=== PATIENT | female | born 1995 | race Caucasian/White ===

== ENCOUNTER 2016-09-06 14:36 | Emergency (ER) | payer SELFPAY ==
[~2016-09-06] VITALS: Ht 170.2 cm; Wt 113.4 kg
[2016-09-06] MEDS ORDERED: IBUP-1780 (14:51)
--- NOTE | 2016-09-06 15:47 | ED General ---
General Chief Complaint: General Problems/Pain Stated Complaint: MIGRAINE SORE THROAT VOMITING EARACHE Nursing Triage Note: States she has had bilateral ear pain for the last 3 days. States today she has been vomiting with no diarrhea, migraine and sore throat. She and her S/O state that they believ they ate something bad yesterday because he has been vomiting as well Nursing Sepsis Screen: No Definite Risk Source of Information: Patient Exam Limitations: No Limitations History of Present Illness Time Seen by Provider: 15:04 Initial Comments This 21-year-old young lady presents to the emergency room with primary complaint of vomiting. She also reports earaches, headache, sore throat, mild cough, and stuffy nose. Symptoms have been present for about 3-4 days. Her significant other reports they were traveling this weekend and ate food at a gas station, and he blames the symptoms on that food. He has also had upset stomach. She denies diarrhea or fever. Allergies and Home Medications Allergies Coded Allergies: No Known Drug Allergies (Unverified , 09/06/16) Home Medications Ibuprofen 800 Mg Tablet, #60 (Reported) Ondansetron 4 Mg Tab.rapdis, 4 MG SL Q4H PRN for NAUSEA/VOMITING-1ST LINE, #10 Prescribed by: NOHELIA PADILLA on 09/06/16 1646 Constitutional: no symptoms reported EENTM: see HPI Respiratory: see HPI Cardiovascular: no symptoms reported Gastrointestinal: see HPI Genitourinary: no symptoms reported : No Musculoskeletal: no symptoms reported Skin: no symptoms reported Psychiatric/Neurological: See HPI Hematologic/Lymphatic: No Symptoms Reported Immunological/Allergic: no symptoms reported Past Zffwlbq-Zsjunk-Ckfiaw Hx Patient Social History Alcohol Use: Rarely Uses Recreational Drug Use: No Smoking Status: Never a Smoker 2nd Hand Smoke Exposure: Yes Recent Foreign Travel: No Contact w/Someone Who Travel: No Recent Infectious Disease Expo: No Recent Hopitalizations: No Immunizations Up To Date Tetanus Booster (TDap): Less than 5yrs Seasonal Allergies Seasonal Allergies: No Surgeries HX Surgeries: No Respiratory Hx Respiratory Disorders: No Cardiovascular Hx Cardiac Disorders: No Neurological Hx Neurological Disorders: Yes Neurological Disorders: Headaches /Migraines Reproductive System : No Genitourinary Hx Genitourinary Disorders: No Gastrointestinal Hx Gastrointestinal Disorders: No Musculoskeletal Hx Musculoskeletal Disorders: No Endocrine Hx Endocrine Disorders: No HEENT HX ENT Disorders: No Cancer Hx Cancer: No Psychosocial Hx Psychiatric Problems: No Integumentary HX Skin/Integumentary Disorder: No Blood Transfusions Hx Blood Disorders: No Physical Exam Vital Signs Vital Sign - Last 12Hours 09/06/16 14:44 Temp 99.3 Pulse 96 Resp 18 B/P (MAP) 130/79 Pulse Ox 96 Capillary Refill : Less Than 3 Seconds General Appearance: No Apparent Distress, WD/WN HEENT: PERRL/EOMI, Normal ENT Inspection, Pharynx Normal Neck: Normal Inspection Respiratory: Lungs Clear, Normal Breath Sounds, No Accessory Muscle Use, No Respiratory Distress Cardiovascular: Regular Rate, Rhythm, No Edema, No Murmur Gastrointestinal: Normal Bowel Sounds, Soft, Tenderness (mild generalized tenderness) Extremity: Normal Inspection, No Pedal Edema Neurologic/Psychiatric: Alert, Oriented x3, No Motor/Sensory Deficits, Normal Mood/Affect, yeast stacker II-XII Norm as Tested Skin: Normal Color, Warm/Dry Progress/Results/Core Measures Results/Orders Lab Results Micro Results My Orders Vital Signs/I&O Blood Pressure Mean: 96 Departure Impression Impression: Primary Impression: Nausea and vomiting Qualified Codes: R11.2 - Nausea with vomiting, unspecified Additional Impression: Flu-like symptoms Disposition: 01 HOME, SELF-CARE Condition: Stable Departure-Patient Inst. Decision time for Depature: 15:20 Referrals: [facility] (PCP/Family) Primary Care Physician Patient Instructions: Nausea and Vomiting, Adult Add. Discharge Instructions: You may use the Zofran (ondansetron) as prescribed for nausea and vomiting. Drink plenty of clear liquids. You may use Tylenol and/or ibuprofen for pain or fever. Follow-up with your primary care provider if not improving. Return to the ER if symptoms worsen. All discharge instructions reviewed with patient and/or family. Voiced understanding. Scripts Ondansetron (Zofran Odt) 4 Mg Tab.rapdis 4 MG SL Q4H Y for NAUSEA/VOMITING-1ST LINE, #10 TAB Prov: NOHELIA PIEDRA MD 09/06/16 NOHELIA PIEDRA MD Sep 06, 2016 15:47
[2016-09-06] MEDS ORDERED: ONDA4TAB8 SL (16:46)
[2016-09-06 16:49] VITALS: BP 130/79
== END 2016-09-06 16:49 | disposition home or self-care (01) ==
LOC: EDUNIT# 14:36 → ER 14:38
DX: J10.2 Influenza due to other identified influenza virus with gastrointestinal manifestations (principal); H92.03 Otalgia, bilateral
CPT/HCPCS: 87430; 87804; 99281

== ENCOUNTER 2016-12-20 08:59 | Emergency (ER) | payer SELFPAY ==
[~2016-12-20] VITALS: Ht 172.7 cm; Wt 117.9 kg
[~2016-12-20 08:59] MED LIST: IBUP-1780; ONDA4TAB8 SL
[2016-12-20] MEDS ORDERED: IBUPROFEN 800 MG (MOTRIN) TAB PO STA (10:06)
[2016-12-20 10:21] LABS: BILIRUBIN,URINE NEGATIVE (NEGATIVE); KETONES,URINE NEGATIVE (NEGATIVE); LEUKOCYTE ESTERASE ,URINE 1+ (NEGATIVE); NITRITE,URINE NEGATIVE (NEGATIVE); PH,URINE 8 (5-9); PROTEIN,URINE NEGATIVE (NEGATIVE); UROBILINOGEN,URINE NORMAL (NORMAL)
[2016-12-20 10:25] LABS: WBC,URINE 0-2 /HPF
--- NOTE | 2016-12-20 11:25 | ED Headache ---
General Chief Complaint: Head/Cervical Problems Stated Complaint: HEADACHE/ABD PAIN/NAUSEA Nursing Triage Note: PT REPORTS SHE WOKE UP WITH A MEJIA AND NAUSEA. PT ALSO REPORTS BREAST TENDERNESS. Nursing Sepsis Screen: No Definite Risk Source: patient Exam Limitations: no limitations History of Present Illness Time seen by provider: 11:24 Initial Comments To ER with reports of a mild headache that started this morning upon awakening. She has associated photophobia and nausea and she does report a history of headaches and this is similar. She also reports breast tenderness and suprapubic discomfort. Last menstrual period was 31 days ago. She states that she is usually irregular. No dysuria. No vaginal discharge. No constipation or diarrhea. No fevers or chills. Timing/Duration: 4-6 hours Severity/Quality: moderate Location: global Prior Headaches/Recent Trauma: occasional headaches Associated Symptoms: No confusion, No fatigue, No facial pain, No fever/chills , No flushing, No loss of consciousness, nausea/vomiting, No nasal congestion, No nasal drainage Allergies and Home Medications Allergies Coded Allergies: No Known Drug Allergies (Unverified , 09/06/16) Home Medications Unable to Obtain Active Prescriptions or Reported Meds Constitutional: see HPI Eyes: No Symptoms Reported Ears, Nose, Mouth, Throat: no symptoms reported Respiratory: no symptoms reported Cardiovascular: no symptoms reported Gastrointestinal: nausea, No vomiting Genitourinary: no symptoms reported Musculoskeletal: no symptoms reported Skin: no symptoms reported Psychiatric/Neurological: No Symptoms Reported Past Tszgfir-Krjzgw-Fnfvoo Hx Patient Social History Alcohol Use: Rarely Uses Recreational Drug Use: No Smoking Status: Never a Smoker 2nd Hand Smoke Exposure: Yes Recent Foreign Travel: No Contact w/Someone Who Travel: No Recent Infectious Disease Expo: No Recent Hopitalizations: No Immunizations Up To Date Tetanus Booster (TDap): Less than 5yrs Seasonal Allergies Seasonal Allergies: No Surgeries HX Surgeries: No Respiratory Hx Respiratory Disorders: No Cardiovascular Hx Cardiac Disorders: No Neurological Hx Neurological Disorders: Yes Neurological Disorders: Headaches /Migraines Genitourinary Hx Genitourinary Disorders: No Gastrointestinal Hx Gastrointestinal Disorders: No Musculoskeletal Hx Musculoskeletal Disorders: No Endocrine Hx Endocrine Disorders: No HEENT HX ENT Disorders: No Cancer Hx Cancer: No Psychosocial Hx Psychiatric Problems: No Integumentary HX Skin/Integumentary Disorder: No Blood Transfusions Hx Blood Disorders: No Physical Exam Vital Signs Vital Sign - Last 12Hours 12/20/16 09:25 Temp 98.1 Pulse 95 Resp 18 B/P (MAP) 125/71 Pulse Ox 97 Capillary Refill : Less Than 3 Seconds General Appearance: WD/WN, no apparent distress HEENT: PERRL/EOMI, normal ENT inspection Neck: non-tender, full range of motion Cardiovascular: regular rate, rhythm, no edema Respiratory: no respiratory distress, no accessory muscle use Gastrointestinal: non tender, soft Extremities: normal range of motion, non-tender Psychiatric: alert, oriented x 3 Crainal Nerves: normal hearing, normal speech, PERRL Skin: normal color, warm/dry Progress/Results/Core Measures Results/Orders Lab Results Laboratory Tests Test 12/20/16 09:20 Range/Units Urine Color YELLOW Urine Clarity SLIGHTLY CLOUDY Urine pH 8 5-9 Urine Specific [place] 1.010 L 1.016-1.022 Urine Protein NEGATIVE NEGATIVE Urine Glucose (UA) NEGATIVE NEGATIVE Urine Ketones NEGATIVE NEGATIVE Urine Nitrite NEGATIVE NEGATIVE Urine Bilirubin NEGATIVE NEGATIVE Urine Urobilinogen NORMAL NORMAL MG/DL Urine Leukocyte Esterase 1+ H NEGATIVE Urine RBC (Auto) NEGATIVE NEGATIVE Urine RBC NONE /HPF Urine WBC 0-2 /HPF Urine Squamous Epithelial Cells 10-25 H /HPF Urine Crystals NONE /LPF Urine Bacteria TRACE /HPF Urine Casts NONE /LPF Urine Mucus NEGATIVE /LPF Urine Culture Indicated NO My Orders Orders - ALEX MOCTEZUMA APRN Prochlorperazine Injection (Compazine In (12/20/16 11:30) Vital Signs/I&O Vital Sign - Last 12Hours 12/20/16 09:25 Temp 98.1 Pulse 95 Resp 18 B/P (MAP) 125/71 Pulse Ox 97 Blood Pressure Mean: 89 Point of Care Testing Urine -Bedside: Negative Departure Impression Impression: Primary Impression: Headache Disposition: 01 HOME, SELF-CARE Condition: Stable Departure-Patient Inst. Decision time for Depature: 11:40 Referrals: NASIR GARCIA DO (PCP) Primary Care Physician MARGARET BALLARD APRN (Family) Primary Care Physician Patient Instructions: Headache, Adult (DC) Add. Discharge Instructions: 1. Return to ER for any concerns 2. See your doctor next week 3. All discharge instructions reviewed with patient and/or family. Voiced understanding. Scripts Unable to Obtain Active Prescriptions or Reported Meds ALEX MOCTEZUMA APRN Dec 20, 2016 11:25
[2016-12-20] MEDS ORDERED: PROCHLORPERAZINE 10 MG/2ML INJ (COMPAZINE) IM ONE (11:30)
[2016-12-20 12:19] VITALS: BP 99/46
== END 2016-12-20 12:19 | disposition home or self-care (01) ==
LOC: EDUNIT# 08:59 → ER 09:02
DX: R51 Headache (principal)
CPT/HCPCS: 81000; 84703; 96372; 99284

== ENCOUNTER 2017-04-11 07:23 | Emergency (ER) | payer SELFPAY ==
[~2017-04-11] VITALS: Ht 172.7 cm; Wt 117.9 kg
--- OUTSIDE RECORDS SUMMARY | 2017-04-11 07:29 | XMS REPORT ---
Author Author MARGARET BALLARD Organization [facility] Address [address] [place] [address] Care Team Providers Care Senior Materials Scientist Name Role Phone BALLARDMARGARET Coley Unavailable PROBLEMS Type Condition ICD9-CM Code [id number] Code Onset Dates Condition Status SNOMED Code Problem History of drug use F19.21 Active 180543600 Problem Obesity (BMI 30-39.9) E66.9 Active 984069161 Problem Marijuana abuse F12.10 Active 54906200 Problem Low back pain M54.5 Active 652283529977 Problem Hyperinsulinemia E16.1 Active 74957885 Problem Low HDL (under 40) E78.6 Active 841034203 Problem HSV-2 (herpes simplex virus 2) infection B00.9 Active 048725304 Problem Family history of diabetes mellitus Z83.3 Active 343406482 Problem Irregular bleeding N92.6 Active 72538478 Problem Routine health maintenance Z00.00 Active 856873512 ALLERGIES Substance Reaction Event Type Date Status N.K.D.A. Unknown Non Drug Allergy Jun, Unknown SOCIAL HISTORY No smoking Hx information available PLAN OF CARE Activity Details Follow Up prn Reason: VITAL SIGNS Height 5'8" in 2016-06-17 Weight 254.6 lbs 2016-06-17 Temperature 97.7 degrees Fahrenheit 2016-06-17 Heart Rate 86 bpm 2016-06-17 Respiratory Rate 18 2016-06-17 BMI 38.71 kg/m2 2016-06-17 Blood pressure systolic 126 mmHg 2016-06-17 Blood pressure diastolic 76 mmHg 2016-06-17 MEDICATIONS Medication Instructions Dosage Frequency Start Date End Date Duration Status Ibuprofen 800 MG Orally 2 times a day 1 tablet 12h Jan, 90 days Active Metronidazole 500 MG Orally Twice a day 1 tablet 12h Jun, Jun, 10 day(s) Active Bactrim DS 800-160 MG Orally Twice a day 1 tablet 12h Jun,Jun 10 day(s) Active Acyclovir 400 MG Orally 3 times a day 1 tablet 8h Dec, 10 day(s ) Active Diflucan 150 MG Orally Once a day 1 tablet today and repeat in 7 days 24h Jun, Jun, 2 days Active RESULTS Name Result Date Reference Range TRICHOMONAS (IN HOUSE) 2016-06-17 TRICHOMONAS Negative Control + Lot # [id number] Exp date 2016-11 UA LONG DIP (IN HOUSE) 2016-06-17 Lot # [id number] Exp date 2017-06-15 Clarity clear Color yellow Odor none GLU negative APRIL negative KET negative SG >=1.030 BLO trace-intact pH 6.0 Protein negative URO 0.2 NIT negative MINI negative Lot # [id number] Exp date 2017-06 BACTERIAL VAGINOSIS (IN HOUSE) RESULTS pOSITIVE Control + Lot # [id number] Exp date 2017-01 CULTURE, VIRAL (HSV W/ TYPING) 2016-06-17 HSV Culture/Type CULTURE, GENITAL 2016-06-17 Genital Culture, Routine Final report Result 1 GC/CHLAM PROBE (STATE) 2016-06-17 CHLAMYDIA negative GC negative PROCEDURES Procedure Date Ordered Related Diagnosis Body Site PELVIC EXAMINATION 2016-06-17 N/A URINALYSIS, AUTO, W/O SCOPE Jun 17, 2016 Office Visit, Est Pt., Level 3 Jun 17, 2016 ERVIN VIRUS ISOLATE, HSV Jun 17, 2016 PELVIC EXAMINATION Jun 17, 2016 AKINS VAG, DNA, DIR PROBE Jun 17, 2016 TRICHOMONAS ASSAY W/OPTIC Jun 17, 2016 CULTURE, BACTERIA, OTHER Jun 17, 2016 No Charge Jun 17, 2016 IMMUNIZATIONS No Known Immunizations
--- OUTSIDE RECORDS SUMMARY | 2017-04-11 07:29 | XMS REPORT ---
Author Author MARGARET BALLARD Organization [facility] Address [address] [place] [address] Care Team Providers Care Autism Motor Specialist Name Role Phone NELLIE MARGARET Unavailable PROBLEMS Type Condition ICD9-CM Code BIC19-ZP Code Onset Dates Condition Status SNOMED Code Problem History of drug use F19.21 Active 004931149 Problem Obesity (BMI 30-39.9) E66.9 Active 176858646 Problem Marijuana abuse F12.10 Active 95450637 Problem Low back pain M54.5 Active 537138376278 Problem Hyperinsulinemia E16.1 Active 38202780 Problem Low HDL (under 40) E78.6 Active 617022576 Problem HSV-2 (herpes simplex virus 2) infection B00.9 Active 600473266 Problem Family history of diabetes mellitus Z83.3 Active 213618458 Problem Irregular bleeding N92.6 Active 57205136 Problem Routine health maintenance Z00.00 Active 503041050 ALLERGIES Unknown Allergies SOCIAL HISTORY No smoking Hx information available PLAN OF CARE VITAL SIGNS MEDICATIONS Medication Instructions Dosage Frequency Start Date End Date Duration Status Microgestin 1.530 1.5-30 MG-MCG Orally Once a day 1 tablet 24h May, 28 days Active RESULTS No Results PROCEDURES No Known procedures IMMUNIZATIONS No Known Immunizations
--- OUTSIDE RECORDS SUMMARY | 2017-04-11 07:29 | XMS REPORT ---
Author Author MARGARET BALLARD Organization [facility] Address [address] [place] [address] Care Team Providers Care Cutter Hand Name Role Phone MARGARET BALLARD Unavailable PROBLEMS Type Condition ICD9-CM Code [id number] Code Onset Dates Condition Status SNOMED Code Problem History of drug use F19.21 Active 762837585 Problem Obesity (BMI 30-39.9) E66.9 Active 586547286 Problem Marijuana abuse F12.10 Active 48150696 Problem Low back pain M54.5 Active 404906276166 Problem Hyperinsulinemia E16.1 Active 18909069 Problem Low HDL (under 40) E78.6 Active 590956407 Problem HSV-2 (herpes simplex virus 2) infection B00.9 Active 771375707 Problem Family history of diabetes mellitus Z83.3 Active 367857686 Problem Irregular bleeding N92.6 Active 26416338 Problem Routine health maintenance Z00.00 Active 476046724 ALLERGIES Unknown Allergies SOCIAL HISTORY No smoking Hx information available PLAN OF CARE VITAL SIGNS MEDICATIONS Unknown Medications RESULTS No Results PROCEDURES No Known procedures IMMUNIZATIONS No Known Immunizations
--- OUTSIDE RECORDS SUMMARY | 2017-04-11 07:29 | XMS REPORT ---
Author Author MARGARET BALLARD Organization [facility] Address [address] [place] [address] Care Team Providers Care Bellows Assembler Name Role Phone BALLARDMARGARET Coley Unavailable PROBLEMS Type Condition ICD9-CM Code [id number] Code Onset Dates Condition Status SNOMED Code Problem History of drug use F19.21 Active 688834715 Problem Obesity (BMI 30-39.9) E66.9 Active 696082581 Problem Marijuana abuse F12.10 Active 20471239 Problem Low back pain M54.5 Active 482039033068 Problem Hyperinsulinemia E16.1 Active 33489339 Problem Low HDL (under 40) E78.6 Active 816639311 Problem HSV-2 (herpes simplex virus 2) infection B00.9 Active 231690076 Problem Family history of diabetes mellitus Z83.3 Active 120133098 Problem Irregular bleeding N92.6 Active 10769893 Problem Routine health maintenance Z00.00 Active 920135128 ALLERGIES No Known Allergies SOCIAL HISTORY Never Assessed PLAN OF CARE Activity Details Follow Up 4 Weeks Reason:Weight management VITAL SIGNS Height 5'8" in 2016-07-29 Weight 253.4 lbs 2016-07-29 Temperature 97.8 degrees Fahrenheit 2016-07-29 Heart Rate 84 bpm 2016-07-29 Respiratory Rate 18 2016-07-29 BMI 38.53 kg/m2 2016-07-29 Blood pressure systolic 118 mmHg 2016-07-29 Blood pressure diastolic 79 mmHg 2016-07-29 MEDICATIONS Medication Instructions Dosage Frequency Start Date End Date Duration Status Metformin HCl 500 MG Orally Twice a day 1 tablet with evening meal x 1 week then one tablet twice a day with meals 12h 06 Apr, 2016 90 days Active Ibuprofen 800 MG Orally 2 times a day 1 tablet 12h 30 Jan, 2017 90 days Active RESULTS No Results PROCEDURES No Known procedures IMMUNIZATIONS No Known Immunizations MEDICAL (GENERAL) HISTORY Type Description Date Medical History HSV 2 Hospitalization History Mental Observation
--- OUTSIDE RECORDS SUMMARY | 2017-04-11 07:30 | XMS REPORT ---
Author Author MARGARET BALLARD Organization [facility] Address [address] [place] [address] Care Team Providers Care Acquisition Manager Name Role Phone BALLARDMARGARET Coley Unavailable PROBLEMS Type Condition ICD9-CM Code SAE19-NB Code Onset Dates Condition Status SNOMED Code Problem History of drug use F19.21 Active 478047820 Problem Obesity (BMI 30-39.9) E66.9 Active 038757348 Problem Marijuana abuse F12.10 Active 83916988 Problem Low back pain M54.5 Active 012672621680 Problem Hyperinsulinemia E16.1 Active 96084103 Problem Low HDL (under 40) E78.6 Active 429937094 Problem HSV-2 (herpes simplex virus 2) infection B00.9 Active 870793949 Problem Family history of diabetes mellitus Z83.3 Active 483530626 Problem Irregular bleeding N92.6 Active 14384882 Problem Routine health maintenance Z00.00 Active 289529049 ALLERGIES Substance Reaction Event Type Date Status N.K.D.A. Unknown Non Drug Allergy May, Unknown SOCIAL HISTORY No smoking Hx information available PLAN OF CARE Activity Details Follow Up 3 Months Reason:[facility] VITAL SIGNS Height 5'8" in 2016-05-18 Weight 255.6 lbs 2016-05-18 Temperature 97.6 degrees Fahrenheit 2016-05-18 Heart Rate 80 bpm 2016-05-18 Respiratory Rate 18 2016-05-18 BMI 38.86 kg/m2 2016-05-18 Blood pressure systolic 120 mmHg 2016-05-18 Blood pressure diastolic 78 mmHg 2016-05-18 MEDICATIONS Medication Instructions Dosage Frequency Start Date End Date Duration Status Metformin HCl 500 MG Orally Twice a day 1 tablet with evening meal x 1 week then one tablet twice a day with meals 12h 06 Apr, 2016 30 day(s) Active Ibuprofen 800 MG Orally 2 times a day 1 tablet 12h 30 Jan, 2017 90 days Active RESULTS No Results PROCEDURES Procedure Date Ordered Related Diagnosis Body Site Office Visit, Est Pt., Level 3 May 18, 2016 IMMUNIZATIONS No Known Immunizations
[2017-04-11 07:49] LABS: BILIRUBIN,URINE NEGATIVE (NEGATIVE); KETONES,URINE NEGATIVE (NEGATIVE); LEUKOCYTE ESTERASE ,URINE 1+ (NEGATIVE); NITRITE,URINE NEGATIVE (NEGATIVE); PH,URINE 5 (5-9); PROTEIN,URINE NEGATIVE (NEGATIVE); UROBILINOGEN,URINE NORMAL (NORMAL)
[2017-04-11 08:00] LABS: SQUAMOUS EPITHELIAL CELL,UR 25-50 /HPF; WBC,URINE RARE /HPF
[2017-04-11] MEDS ORDERED: LIDOCAINE 2% VISCOUS 15 ML UDC PO ONE (08:00)
[2017-04-11] MEDS ORDERED: ONDANSETRON 4 MG (ZOFRAN) ORAL DISSOLVE TAB SL ONE (08:00)
[2017-04-11] MEDS ORDERED: ANTACID SUSP 30 ML UDC (MYLANTA) PO ONE (08:00)
--- NOTE | 2017-04-11 08:27 | ED Abdominal Pain ---
General Chief Complaint: Abdominal/GI Problems Stated Complaint: LEFT ABD PAIN Nursing Triage Note: AMB TO ROOM C/O L LOWER ABD CRAMPING. 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 Pain radiates around to the left flank and back. She has associated nausea without vomiting. She denies constipation or diarrhea. Last bowel movement was yesterday and was normal. She denies any urinary changes for vaginal symptoms. Movement exacerbates her pain. Her last oral intake of food or fluid was at 23:30. She has not taken any medications for this pain. Last menstrual period was 2 weeks ago. She is sexually active. Allergies and Home Medications Allergies Coded Allergies: No Known Drug Allergies (Unverified , 09/06/16) Home Medications Unable to Obtain Active Prescriptions or Reported Meds Review of Systems Constitutional: no symptoms reported EENTM: No Symptoms Reported Respiratory: No Symptoms Reported Cardiovascular: No Symptoms Reported Gastrointestinal: See HPI Genitourinary: No Symptoms Reported Musculoskeletal: no symptoms reported Skin: no symptoms reported Psychiatric/Neurological: No Symptoms Reported Endocrine: No Symptoms Reported Past Qpdczyx-Dkgsdi-Umcdiy Hx Patient Social History Alcohol Use: Occasionally Uses Recreational Drug Use: No Smoking Status: Never a Smoker 2nd Hand Smoke Exposure: Yes Recent Foreign Travel: No Contact w/Someone Who Travel: No Recent Infectious Disease Expo: No Recent Hopitalizations: No Immunizations Up To Date Tetanus Booster (TDap): Less than 5yrs Seasonal Allergies Seasonal Allergies: No Surgeries History of Surgeries: No Respiratory History of Respiratory Disorde: No Cardiovascular History of Cardiac Disorders: No Neurological History of Neurological Disord: Yes Neurological Disorders: Headaches /Migraines Reproductive System : No Last Menstrual Period: Mar 28, 2017 Genitourinary History of Genitourinary Disor: No Gastrointestinal History of Gastrointestinal Di: No Musculoskeletal History of Musculoskeletal Dis: No Endocrine History of Endocrine Disorders: No HEENT History of HEENT Disorders: No Cancer History of Cancer: No Psychosocial History of Psychiatric Problem: No Integumentary History of Skin or Integumenta: No Blood Transfusions History of Blood Disorders: No Physical Exam Vital Signs VS - Last 72 Hours, by Label 04/11/17 07:28 Temp 97.6 Pulse 78 Resp 18 B/P (MAP) 129/72 Pulse Ox 98 O2 Delivery Room Air Capillary Refill : Less Than 3 Seconds General Appearance: WD/WN, no apparent distress HEENT: PERRL/EOMI, normal ENT inspection, pharynx normal Neck: normal inspection Respiratory: lungs clear, normal breath sounds, no respiratory distress, no accessory muscle use Cardiovascular: regular rate, rhythm, no edema, no murmur Gastrointestinal: normal bowel sounds, soft, No distended, No guarding, No rebound, tenderness (left upper quadrant and epigastrium) Extremities: normal inspection, no pedal edema 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, no motor/sensory deficits, alert, normal mood/affect, oriented x 3 Skin: normal color, warm/dry Progress/Results/Core Measures Results/Orders Lab Results Laboratory Tests Test 04/11/17 07:41 Range/Units Urine Color YELLOW Urine Clarity CLEAR Urine pH 5 5-9 Urine Specific [place] 1.020 1.016-1.022 Urine Protein NEGATIVE NEGATIVE Urine Glucose (UA) NEGATIVE NEGATIVE Urine Ketones NEGATIVE NEGATIVE Urine Nitrite NEGATIVE NEGATIVE Urine Bilirubin NEGATIVE NEGATIVE Urine Urobilinogen NORMAL NORMAL MG/DL Urine Leukocyte Esterase 1+ H NEGATIVE Urine RBC (Auto) 4+ H NEGATIVE Urine RBC 10-25 H /HPF Urine WBC RARE /HPF Urine Squamous Epithelial Cells 25-50 H /HPF Urine Crystals NONE /LPF Urine Bacteria NEGATIVE /HPF Urine Casts NONE /LPF Urine Mucus SMALL H /LPF Urine Culture Indicated NO My Orders Orders - NOHELIA PIEDRA MD Ua Culture If Indicated (04/11/17 07:31) Urine Bedside (04/11/17 07:31) Ondansetron Oral Dissolve Tab (Zofran (04/11/17 08:00) Lidocaine 2% Viscous 15 Ml (Xylocaine Vi (04/11/17 08:00) Antacid Suspension (Mylanta Suspension (04/11/17 08:00) Medications Given in ED Current Medications Medications Dose Ordered Sig/Momo Route Start Time Stop Time Status Last Admin Dose Admin Al Hydrox/Mg Hydrox/Simethicone 30 ml ONCE ONCE PO 04/11/17 08:00 04/11/17 08:01 DC 04/11/17 08:15 30 ML Lidocaine HCl 15 ml ONCE ONCE PO 04/11/17 08:00 04/11/17 08:01 DC 04/11/17 08:14 15 ML Ondansetron HCl 8 mg ONCE ONCE SL 04/11/17 08:00 04/11/17 08:01 DC 04/11/17 07:58 8 MG Vital Signs/I&O Vital Sign - Last 12Hours 04/11/17 07:28 Temp 97.6 Pulse 78 Resp 18 B/P (MAP) 129/72 Pulse Ox 98 O2 Delivery Room Air Blood Pressure Mean: 91 Point of Care Testing Urine -Bedside: Negative Progress Note : Time: 08:31 Progress Note Patient was given Zofran sublingually followed by a GI cocktail. Nausea resolved and pain improved moderately both subjectively and on examination. We will try to manage her symptoms with oral medications. She was advised to return if symptoms worsen. Departure Impression Impression: Primary Impression: Epigastric pain Additional Impression: Nausea Disposition: 01 HOME, SELF-CARE Condition: Improved Departure-Patient Inst. Decision time for Depature: 08:32 Referrals: NASIR GARCIA DO (PCP) Primary Care Physician MARGARET BALLARD APRN (Family) Primary Care Physician Patient Instructions: Acute Abdomen (Belly Pain), Adult (DC), Gastritis (DC) Add. Discharge Instructions: Drink plenty of clear liquids. Sip on clear liquids such as water, Gatorade, etc. frequently throughout the day. Use the nausea medication as prescribed. Use an antacid such as Pepcid (famotidine) 20 mg twice daily and/or Prilosec ( omeprazole) 20 mg twice daily as long as pain persists. The generic forms of these medications should work just as well as brand name. You may additionally use Tums for more immediate relief of pain. Avoid the following: Eating large meals, eating close to bedtime, citrus fruits and juices, tomato products, chocolate, carbonation, caffeine, tobacco products, alcohol, NSAID medications such as ibuprofen or naproxen, spicy foods, fatty or greasy foods, or anything else you know irritate your stomach. Gradually advance your diet with small quantities of bland food as tolerated. Return to the ER if symptoms worsen. All discharge instructions reviewed with patient and/or family. Voiced understanding. Scripts Ondansetron (Zofran Odt) 4 Mg Tab.rapdis 4 MG SL Q4H Y for NAUSEA/VOMITING-1ST LINE, #10 TAB Substitute regular tabs if sublingual is cost prohibitive Prov: NOHELIA PIEDRA MD 04/11/17 NOHELIA PIEDRA MD Apr 11, 2017 08:27
[2017-04-11] MEDS ORDERED: ONDA4TAB8 SL (08:36)
[2017-04-11 08:45] VITALS: BP 129/72
== END 2017-04-11 08:45 | disposition home or self-care (01) ==
LOC: EDUNIT# 07:23 → ER 07:25
DX: R10.13 Epigastric pain (principal); R11.0 Nausea; G43.909 Migraine, unspecified, not intractable, without status migrainosus; Z77.22 Contact with and (suspected) exposure to environmental tobacco smoke (acute) (chronic)
CPT/HCPCS: 81000; 84703; 99283

== ENCOUNTER 2017-12-05 08:21 | Emergency (ER) | payer SELFPAY ==
[~2017-12-05] VITALS: Ht 172.7 cm; Wt 121.6 kg
--- OUTSIDE RECORDS SUMMARY | 2017-12-05 08:27 | XMS REPORT ---
Author Author MARGARET BALLARD [facility] Address [address] [place] [address] Care Team Providers Care Film Coater Name Role Phone MARGARET BALLARD Unavailable PROBLEMS Type Condition ICD9-CM Code [id number] Code Onset Dates Condition Status SNOMED Code Problem Low back pain M54.5 Active 099010056760 Problem Dyslipidemia (high LDL; low HDL) E78.5 Active 301573909 Problem Morbid (severe) obesity due to excess calories E66.01 Active 959842067 Problem Body mass index (BMI) of 40.0-44.9 in adult Z68.41 Active 352695069 Problem HSV-2 (herpes simplex virus 2) infection B00.9 Active 625529358 Problem Marijuana abuse F12.10 Active 26255211 Problem Irregular bleeding N92.6 Active 92300228 Problem Hyperinsulinemia E16.1 Active 34245612 ALLERGIES No Information ENCOUNTERS Encounter Location Date Diagnosis [place] [id number] [place] [phone] Nov, [facility] [id number] [place] [phone] Aug, [place] [id number] [place] [address] Aug, [place] [id number] [place] [address] Aug, Hyperinsulinemia E16.1 ; Low HDL (under 40) E78.6 ; Irregular bleeding N92.6 ; Low back pain M54.5 ; Marijuana abuse F12.10 ; HSV-2 (herpes simplex virus 2) infection B00.9 ; Body mass index (BMI) of 40.0-44.9 in adult Z68.41 and Morbid (severe) obesity due to excess calories E66.01 [facility] [id number] [place] [address] 02 Aug, 2017 [place] [id number] [place] [address] 30 Jul, 2017 Encounter for test, result unknown Z32.00 [facility] [place] [address] [address] May, Abdominal pain, unspecified abdominal location R10.9 and BMI 40.0-44.9, adult Z68.41 [place] [id number] [place] [address] May, [facility] [place] [address] [address] 23 Oct, 2016 [facility] [place] [address] [address] 06 Oct, 2016 Stomach ache R10.9 and Lower abdominal pain R10.30 [place] [address] [address] 16 Jul, 2016 Hyperinsulinemia E16.1 ; Obesity (BMI 30-39.9) E66.9 and Encounter for evaluation regarding contraception options Z30.09 [facility] [place] [id number] [place] [address] 02 Jun, 2016 Dysuria R30.0 ; Vaginal discharge N89.8 ; Labial lesion N90.89 ; Vaginal candidiasis B37.3 ; HSV-2 (herpes simplex virus 2) infection B00.9 ; Other specified bacterial agents as the cause of diseases classified elsewhere B96.89 and Acute vaginitis N76.0 [place] [id number] [place] [address] May, [place] [address] [address] May, [place] [address] [address] May, Hyperinsulinemia E16.1 ; Low back pain M54.5 ; Irregular bleeding N92.6 and Obesity (BMI 30-39.9) E66.[address] [address] Apr, Irregular bleeding N92.6 ; Hyperinsulinemia E16.1 ; Low HDL (under 40) E78.6 and Obesity (BMI 30-39.9) E66.[address] [address] Feb, [address] [address] Jan, Hyperinsulinemia E16.1 and Irregular menses N92.[address] [address] Dec, Routine health maintenance Z00.00 ; Family history of diabetes mellitus Z83.3 ; HSV-2 (herpes simplex virus 2) infection B00.9 and Obesity (BMI 30-39.9) E66.[address] [address] Dec, Vaginal sore N89.8 and High risk sexual behavior Z72.51 [facility] [address] [address] Dec, Acute non-recurrent sinusitis, unspecified location J01.[address] [address] Nov, Routine gynecological examination Z01.419 [facility] [address] [address] Nov, Right elbow pain M25.521 [facility] [address] [address] Aug, Abrasion of ankle, left S90.512A [address] [address] Aug, Encounter for Depo-Provera contraception Z30.42 [facility] [address] [id number] [address] 10 Jun, 2015 Upper respiratory tract infection, unspecified type 465.9 [facility] [address] [address] 14 May, 2015 Encounter for Depo-Provera contraception Z30.42 [facility] [address] [place] [address] 12 May, 2015 Surveillance of contraceptive injection Z30.42 [place] [address] [place] [address] 11 May, 2015 Encounter for counseling regarding contraception Z30.9 ; History of drug use F19.21 ; Marijuana abuse F12.10 ; Routine screening for STI (sexually transmitted infection) Z11.3 ; Unprotected sexual intercourse Z72.51 ; Low back pain M54.5 and Irregular menses N92.6 [facility] [address] [address] 08 May, 2015 Nexplanon removal Z30.49 IMMUNIZATIONS No Known Immunizations SOCIAL HISTORY Never Assessed REASON FOR VISIT Triage PLAN OF CARE VITAL SIGNS Height 5'8" in 2017-06-13 Temperature 97.8 degrees Fahrenheit 2017-06-13 MEDICATIONS Unknown Medications RESULTS No Results PROCEDURES No Known procedures INSTRUCTIONS MEDICATIONS ADMINISTERED No Known Medications MEDICAL (GENERAL) HISTORY Type Description Date Medical History HSV 2 Medical History History of drug use Hospitalization History Mental Observation
--- OUTSIDE RECORDS SUMMARY | 2017-12-05 08:29 | XMS REPORT | Continuity of Care Document ---
Author Author [facility] Organization [facility] Address Unknown Phone Unavailable Allergies Active Description Code Type Severity Reaction Onset Reported/Identified Relationship to Patient Clinical Status Yes No Known Drug Allergies [id number] Drug Allergy Unknown N/A 09/06/2016 Medications There is no data. Problems Date Dx Coded Attending Type Code Diagnosis Diagnosed By 01/23/2016 MARGARET BALLARD APRN Ot E16.1 OTHER HYPOGLYCEMIA 01/23/2016 MARGARET BALLARD WORKPLACE TRAINER AND ASSESSOR Ot N92.6 IRREGULAR MENSTRUATION, UNSPECIFIED 09/06/2016 MARGARET BALLARD WORKPLACE TRAINER AND ASSESSOR Ot E16.1 OTHER HYPOGLYCEMIA 09/06/2016 MARGARET BALLARD WORKPLACE TRAINER AND ASSESSOR Ot N92.6 IRREGULAR MENSTRUATION, UNSPECIFIED 09/06/2016 DOROTHEA THOMAS, NOHELIA T Ot H92.03 OTALGIA, BILATERAL 09/06/2016 DOROTHEA THOMAS, NOHELIA T Ot J10.2 INFLUENZA DUE TO OTH IDENT INFLUENZA VIR 09/06/2016 DOROTHEA THOMAS, NOHELIA T Ot R11.2 NAUSEA WITH VOMITING, UNSPECIFIED 09/08/2016 DOROTHEA THOMAS, NOHELIA T Ot H92.03 OTALGIA, BILATERAL 09/08/2016 DOROTHEA THOMAS, NOHELIA T Ot J10.2 INFLUENZA DUE TO OTH IDENT INFLUENZA VIR 09/08/2016 DOROTHEA THOMAS, NOHELIA T Ot R11.2 NAUSEA WITH VOMITING, UNSPECIFIED 12/20/2016 MARGARET BALLARD WORKPLACE TRAINER AND ASSESSOR Ot E16.1 OTHER HYPOGLYCEMIA 12/20/2016 MARGARET BALLARD WORKPLACE TRAINER AND ASSESSOR Ot N92.6 IRREGULAR MENSTRUATION, UNSPECIFIED 12/20/2016 ALEX MOCTEZUMA APRN Ot R51 HEADACHE 12/20/2016 MARGARET BALLARD WORKPLACE TRAINER AND ASSESSOR Ot E16.1 OTHER HYPOGLYCEMIA 12/20/2016 MARGARET BALLARD WORKPLACE TRAINER AND ASSESSOR Ot N92.6 IRREGULAR MENSTRUATION, UNSPECIFIED 12/22/2016 MOCTEZUMA, PETER J WORKPLACE TRAINER AND ASSESSOR Ot R51 HEADACHE 04/11/2017 JOANNE BALLARDELE Leland WORKPLACE TRAINER AND ASSESSOR Ot E16.1 OTHER HYPOGLYCEMIA 04/11/2017 NELLIE MARGARET R WORKPLACE TRAINER AND ASSESSOR Ot N92.6 IRREGULAR MENSTRUATION, UNSPECIFIED 04/11/2017 DOROTHEA THOMAS, NOHELIA Esparza Ot G43.909 MIGRAINE, UNSP, NOT INTRACTABLE, WITHOUT 04/11/2017 DOROTHEA THOMAS, NOHELIA T Ot R10.13 EPIGASTRIC PAIN 04/11/2017 DOROTHEA THOMAS, NOHELIA T Ot R10.9 UNSPECIFIED ABDOMINAL PAIN 04/11/2017 DOROTHEA THOMAS, NOHELIA T Ot R11.0 NAUSEA 04/11/2017 DOROTHEA THOMAS, NOHELIA Esparza Ot Z77.22 CNTCT W AND EXPSR TO ENVIRON TOBACCO SMO 04/11/2017 MARGARET BALLARD WORKPLACE TRAINER AND ASSESSOR Ot E16.1 OTHER HYPOGLYCEMIA 04/11/2017 JOANNE BALLARDELE L[place] WORKPLACE TRAINER AND ASSESSOR Ot N92.6 IRREGULAR MENSTRUATION, UNSPECIFIED 11/07/2017 MARGARET BALLARD R WORKPLACE TRAINER AND ASSESSOR Ot E16.1 OTHER HYPOGLYCEMIA 11/07/2017 JOANNE BALLARDELE [place] WORKPLACE TRAINER AND ASSESSOR Ot N92.6 IRREGULAR MENSTRUATION, UNSPECIFIED 11/07/2017 TOBY KWON MD Ot G43.909 MIGRAINE, UNSP, NOT INTRACTABLE, WITHOUT 11/07/2017 TOBY KWON MD Ot R11.2 NAUSEA WITH VOMITING, UNSPECIFIED 11/07/2017 TOBY KWON MD Ot Z77.22 CNTCT W AND EXPSR TO ENVIRON TOBACCO SMO 11/09/2017 TOBY KWON MD Ot G43.909 MIGRAINE, UNSP, NOT INTRACTABLE, WITHOUT 11/09/2017 TOBY KWON MD Ot R11.2 NAUSEA WITH VOMITING, UNSPECIFIED 11/09/2017 TOBY KWON MD Ot Z77.22 CNTCT W AND EXPSR TO ENVIRON TOBACCO SMO 11/13/2017 TOBY KWON MD Ot G43.909 MIGRAINE, UNSP, NOT INTRACTABLE, WITHOUT 11/13/2017 TOBY KWON MD Ot R11.2 NAUSEA WITH VOMITING, UNSPECIFIED 11/13/2017 TOBY KWON MD Ot Z77.22 CNTCT W AND EXPSR TO ENVIRON TOBACCO SMO Procedures There is no data. Results Test Result Range HSV Culture and Typing - 06/17/16 15:26 HSV Culture/Type Comment Genital Culture, Routine - 06/17/16 15:26 Genital Culture, Routine Note Streptococcus pyogenes antigen detection - 09/06/16 15:16 Streptococcus pyogenes antigen detection NEGATIVE NEGATIVE Influenza virus A and B antigen detection - 09/06/16 15:16 FLU RESULT NEGATIVE FOR INFLUENZA A AND B ANTIGENS BY IA NRG Bacterial throat culture - 09/06/16 15:16 Bacterial throat culture NBS NRG Genital Culture, Routine - 10/19/16 14:23 Genital Culture, Routine Note Complete urinalysis with reflex to culture - 12/20/16 09:20 Urine color determination YELLOW NRG Urine clarity determination SLIGHTLY CLOUDY NRG Urine pH measurement by test strip 8 5-9 Specific gravity of urine by test strip 1.010 1.016- 1.022 Urine protein assay by test strip, semi-quantitative NEGATIVE NEGATIVE Urine glucose detection by automated test strip NEGATIVE NEGATIVE Erythrocytes detection in urine sediment by light microscopy NEGATIVE NEGATIVE Urine ketones detection by automated test strip NEGATIVE NEGATIVE Urine nitrite detection by test strip NEGATIVE NEGATIVE Urine total bilirubin detection by test strip NEGATIVE NEGATIVE Urine urobilinogen measurement by automated test strip (mass/volume) NORMAL NORMAL Urine leukocyte esterase detection by dipstick 1+ NEGATIVE Automated urine sediment erythrocyte count by microscopy (number/high power field) NONE NRG Automated urine sediment leukocyte count by microscopy (number/high power field ) [HPF] NRG Bacteria detection in urine sediment by light microscopy TRACE NRG Squamous epithelial cells detection in urine sediment by light microscopy 10-25 NRG Crystals detection in urine sediment by light microscopy NONE NRG Casts detection in urine sediment by light microscopy NONE NRG Mucus detection in urine sediment by light microscopy NEGATIVE NRG Complete urinalysis with reflex to culture NO NRG Complete urinalysis with reflex to culture - 04/11/17 07:41 Urine color determination YELLOW NRG Urine clarity determination CLEAR NRG Urine pH measurement by test strip 5 5-9 Specific gravity of urine by test strip 1.020 1.016- 1.022 Urine protein assay by test strip, semi-quantitative NEGATIVE NEGATIVE Urine glucose detection by automated test strip NEGATIVE NEGATIVE Erythrocytes detection in urine sediment by light microscopy 4+ NEGATIVE Urine ketones detection by automated test strip NEGATIVE NEGATIVE Urine nitrite detection by test strip NEGATIVE NEGATIVE Urine total bilirubin detection by test strip NEGATIVE NEGATIVE Urine urobilinogen measurement by automated test strip (mass/volume) NORMAL NORMAL Urine leukocyte esterase detection by dipstick 1+ NEGATIVE Automated urine sediment erythrocyte count by microscopy (number/high power field) [HPF] NRG Automated urine sediment leukocyte count by microscopy (number/high power field ) RARE NRG Bacteria detection in urine sediment by light microscopy NEGATIVE NRG Squamous epithelial cells detection in urine sediment by light microscopy 25-50 NRG Crystals detection in urine sediment by light microscopy NONE NRG Casts detection in urine sediment by light microscopy NONE NRG Mucus detection in urine sediment by light microscopy SMALL NRG Complete urinalysis with reflex to culture NO NRG TEST, SERUM (QUAL) - 08/12/17 08:47 HCG, TOTAL, QL NEGATIVE See Note: Complete urinalysis with reflex to culture - 11/07/17 08:35 Urine color determination YELLOW NRG Urine clarity determination CLEAR NRG Urine pH measurement by test strip 6 5-9 Specific gravity of urine by test strip 1.020 1.016- 1.022 Urine protein assay by test strip, semi-quantitative NEGATIVE NEGATIVE Urine glucose detection by automated test strip NEGATIVE NEGATIVE Erythrocytes detection in urine sediment by light microscopy NEGATIVE NEGATIVE Urine ketones detection by automated test strip NEGATIVE NEGATIVE Urine nitrite detection by test strip NEGATIVE NEGATIVE Urine total bilirubin detection by test strip NEGATIVE NEGATIVE Urine urobilinogen measurement by automated test strip (mass/volume) NORMAL NORMAL Urine leukocyte esterase detection by dipstick 1+ NEGATIVE Automated urine sediment erythrocyte count by microscopy (number/high power field) NONE NRG Automated urine sediment leukocyte count by microscopy (number/high power field ) NONE NRG Bacteria detection in urine sediment by light microscopy NEGATIVE NRG Squamous epithelial cells detection in urine sediment by light microscopy 5-10 NRG Crystals detection in urine sediment by light microscopy NONE NRG Casts detection in urine sediment by light microscopy NONE NRG Mucus detection in urine sediment by light microscopy NEGATIVE NRG Complete urinalysis with reflex to culture NO NRG Complete blood count (CBC) with automated white blood cell (WBC) differential - 11/07/17 08:39 Blood leukocytes automated count (number/volume) 9.9 10*3/uL 4.3-11.0 Blood erythrocytes automated count (number/volume) 4.80 10*6/uL 4.35-5.85 Venous blood hemoglobin measurement (mass/volume) 13.2 g/dL 11.5-16.0 Blood hematocrit (volume fraction) 40 % 35-52 Automated erythrocyte mean corpuscular volume 84 [foz_us] 80-99 Automated erythrocyte mean corpuscular hemoglobin (mass per erythrocyte) 28 pg 25-34 Automated erythrocyte mean corpuscular hemoglobin concentration measurement ( mass/volume) 33 g/dL 32-36 Automated erythrocyte distribution width ratio 13.7 % 10.0-14.5 Automated blood platelet count (count/volume) 347 10*3/uL 130-400 Automated blood platelet mean volume measurement 9.5 [foz_us] 7.4-10.4 Automated blood neutrophils/100 leukocytes 64 % 42-75 Automated blood lymphocytes/100 leukocytes 27 % 12-44 Blood monocytes/100 leukocytes 6 % 0-12 Automated blood eosinophils/100 leukocytes 3 % 0-10 Automated blood basophils/100 leukocytes 0 % 0-10 Blood neutrophils automated count (number/volume) 6.3 10*3 1.8-7.8 Blood lymphocytes automated count (number/volume) 2.7 10*3 1.0-4.0 Blood monocytes automated count (number/volume) 0.6 10*3 0.0-1.0 Automated eosinophil count 0.3 10*3/uL 0.0-0.3 Automated blood basophil count (count/volume) 0.0 10*3/uL 0.0-0.1 Comprehensive metabolic panel - 11/07/17 08:44 Serum or plasma sodium measurement (moles/volume) 140 mmol/L 135-145 Serum or plasma potassium measurement (moles/volume) 4.2 mmol/L 3.6-5.0 Serum or plasma chloride measurement (moles/volume) 106 mmol/L 98-107 Carbon dioxide 24 mmol/L 21-32 Serum or plasma anion gap determination (moles/volume) 10 mmol/L 5-14 Serum or plasma urea nitrogen measurement (mass/volume) 16 mg/dL 7-18 Serum or plasma creatinine measurement (mass/volume) 0.67 mg/dL 0.60-1.30 Serum or plasma urea nitrogen/creatinine mass ratio 24 NRG Serum or plasma creatinine measurement with calculation of estimated glomerular filtration rate > NRG Serum or plasma glucose measurement (mass/volume) 102 mg/dL 70-105 Serum or plasma calcium measurement (mass/volume) 10.0 mg/dL 8.5-10.1 Serum or plasma total bilirubin measurement (mass/volume) 0.2 mg/dL 0.1-1.0 Serum or plasma alkaline phosphatase measurement (enzymatic activity/volume) 84 U/L 40-136 Serum or plasma aspartate aminotransferase measurement (enzymatic activity/ volume) 13 U/L 5-34 Serum or plasma alanine aminotransferase measurement (enzymatic activity/volume ) 15 U/L 0-55 Serum or plasma protein measurement (mass/volume) 7.4 g/dL 6.4-8.2 Serum or plasma albumin measurement (mass/volume) 4.1 g/dL 3.2-4.5 Encounters ACCT No. Visit Date/Time Discharge Status Pt. Type Provider Facility Loc./Unit Complaint [id number] 11/07/2017 08:17:00 11/07/2017 09:53:00 DIS Outpatient DOYLE THOMAS, TOBY Riojas [facility] ER VOMITING,ABD PAIN [id number] 04/11/2017 07:25:00 04/11/2017 08:45:00 DIS Emergency NOHELIA PIEDRA MD [facility] ER LEFT ABD PAIN [id number] 12/20/2016 09:02:00 12/20/2016 12:19:00 DIS Emergency ALEX MOCTEZUMA APRN [facility] ER HEADACHE/ABD PAIN/NAUSEA [id number] 09/06/2016 14:38:00 09/06/2016 16:49:00 DIS Emergency NOHELIA PIEDRA MD [facility] ER MIGRAINE SORE THROAT VOMITING EARACHE [id number] 01/21/2016 11:09:00 01/21/2016 23:59:59 CLS Outpatient MARGARET BALLARD APRN [facility] RAD HYPERINSULINEMIA, IRREGULAR MENSES [id number] 04/02/2015 08:18:00 04/02/2015 23:59:59 CLS Outpatient JOANNA WHALEN [facility] [id number] 11/15/2017 13:20:00 11/15/2017 23:59:59 CLS Outpatient MARGARET BALLARD [facility] [id number] 08/12/2017 08:40:00 Document Registration [id number] 06/20/2016 20:05:00 Document Registration [id number] 10/22/2016 13:05:00 Document Registration
[2017-12-05] MEDS ORDERED: ORPHENADRINE 60 MG/2 ML (NORFLEX) AMP IM STA (08:37)
[2017-12-05] MEDS ORDERED: KETOROLAC 60 MG/2 ML VIAL IM STA (08:37)
[2017-12-05 08:38] LABS: BILIRUBIN,URINE NEGATIVE (NEGATIVE); CLARITY,URINE CLEAR; COLOR,URINE YELLOW; GLUCOSE, URINE (UA) NEGATIVE (NEGATIVE); KETONES,URINE NEGATIVE (NEGATIVE); LEUKOCYTE ESTERASE ,URINE 1+ (NEGATIVE); NITRITE,URINE NEGATIVE (NEGATIVE); PH,URINE 5 (5-9); PROTEIN,URINE NEGATIVE (NEGATIVE); UROBILINOGEN,URINE NORMAL (NORMAL)
--- NOTE | 2017-12-05 08:43 | ED Back Pain ---
General Chief Complaint: Back Problems Stated Complaint: BACK PAIN Source of Information: Patient Exam Limitations: No Limitations History of Present Illness Date Seen by Provider: Dec 05, 2017 Time Seen by Provider: 08:26 Initial Comments Here with report of low back pain bilateral. Onset this morning when she woke up. She states that she did not have any ibuprofen or could not find it at her house so did not try any of that. She usually uses ibuprofen for back pain. Notes that her menstrual periods are somewhat irregular and she has not had one for couple months. She was seen last month for nausea and vomiting and had negative test at that time. Denies dysuria, vaginal discharge or bleeding. Denies numbness between her legs. Denies weakness or bowel or bladder incontinence. 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 Location: Lumbar Spine, Paraspinous Muscles Timing/Duration: 1-3 Hours Severity: Moderate Pain/Injury Location: Back Radiation: Buttocks Method of Injury: Unknown Modifying Factors: Worse With Movement; Improves With Rest Associated Symptoms: muscle spasms; No fever, No weakness, No numbness in legs/ feet, No tingling in legs/feet, No sensory/motor loss; lower back pain; No loss of bladder control, No loss of bowel control Allergies and Home Medications Allergies Coded Allergies: No Known Drug Allergies (Unverified , 09/06/16) Home Medications Unable to Obtain Active Prescriptions or Reported Meds Patient Home Medication List Home Medication List Reviewed: Yes Constitutional: no symptoms reported Respiratory: no symptoms reported; No cough, No short of breath Cardiovascular: no symptoms reported Gastrointestinal: no symptoms reported Genitourinary: no symptoms reported Musculoskeletal: back pain, muscle pain, muscle stiffness Skin: no symptoms reported Psychiatric/Neurological: No Symptoms Reported Past Bnmuybo-Avjssp-Oypgjp Hx Past Med/Social Hx: Reviewed Nursing Past Med/Soc Hx Patient Social History Alcohol Use: Denies Use Recreational Drug Use: No Smoking Status: Never a Smoker 2nd Hand Smoke Exposure: Yes Recent Foreign Travel: No Contact w/Someone Who Travel: No Recent Hopitalizations: No Immunizations Up To Date Tetanus Booster (TDap): Less than 5yrs Seasonal Allergies Seasonal Allergies: No Past Medical History Surgeries: No Respiratory: No Cardiac: No Neurological: Yes Headaches /Migraines Genitourinary: No Gastrointestinal: No Musculoskeletal: No Endocrine: No HEENT: No Cancer: No Psychosocial: No Integumentary: No Blood Disorders: No Family Medical History Reviewed Nursing Family Hx No Pertinent Family Hx Physical Exam Vital Signs Vital Signs - First Documented 12/05/17 08:22 Temp 98.3 Pulse 98 Resp 20 B/P (MAP) 128/87 (101) Pulse Ox 97 O2 Delivery Room Air Capillary Refill : Height, Weight, BMI Height: 5'8.00" Weight: 270lbs. oz. 122.793340dw; BMI Method:Stated General Appearance: No Apparent Distress, WD/WN Neck: Non Tender, Supple Cardiovascular: Regular Rate, Rhythm, No Murmur Respiratory: Lungs Clear, Normal Breath Sounds Gastrointestinal: Non Tender, Soft Back: No Vertebral Tenderness, Muscle Spasm, Other (tender to the low lumbar area bilateral. Tender to bilateral SI joints.) Extremity: Normal Range of Motion, Non Tender Neurologic/Psychiatric: Alert, Oriented x3 Skin: Normal Color, Warm/Dry Progress/Results/Core Measures Results/Orders Lab Results Laboratory Tests Test 12/05/17 08:25 Range/Units Urine Color YELLOW Urine Clarity CLEAR Urine pH 5 5-9 Urine Specific [place] 1.025 H 1.016-1.022 Urine Protein NEGATIVE NEGATIVE Urine Glucose (UA) NEGATIVE NEGATIVE Urine Ketones NEGATIVE NEGATIVE Urine Nitrite NEGATIVE NEGATIVE Urine Bilirubin NEGATIVE NEGATIVE Urine Urobilinogen NORMAL NORMAL MG/DL Urine Leukocyte Esterase 1+ H NEGATIVE Urine RBC (Auto) NEGATIVE NEGATIVE Urine RBC RARE /HPF Urine WBC RARE /HPF Urine Squamous Epithelial Cells 10-25 H /HPF Urine Crystals NONE /LPF Urine Bacteria NEGATIVE /HPF Urine Casts NONE /LPF Urine Mucus SMALL H /LPF Urine Culture Indicated NO My Orders Orders - TOBY KWON MD Urine Bedside (12/05/17 08:28) Ua Culture If Indicated (12/05/17 08:28) Ketorolac Injection (Toradol Injection) (12/05/17 08:37) Orphenadrine Injection (Norflex Injectio (12/05/17 08:37) Hydrocodone/Apap 5/325 Tablet (Lortab 5 (12/05/17 09:26) Vital Signs/I&O 12/05/17 12/05/17 12/05/17 12/05/17 08:22 08:44 08:46 09:30 Temp 98.3 98.3 98.3 98.3 Pulse 98 Resp 20 B/P (MAP) 128/87 (101) Pulse Ox 97 O2 Delivery Room Air Urine -Bedside: Negative Progress Progress Note : Progress Note Seen and evaluated. Norflex 60 mg IM and Toradol 60 mg IM. UA ordered. UCG bedside testing is negative. Monitor patient. 929: Doing a little better. She is asking for a work note and reviewed prescription of ibuprofen which I will do. Discharged home with return precautions. Patient verbalize understanding instructions and agreement with plan. We will give 1 dose hydrocodone 5 now. Departure Impression Primary Impression: Back pain Qualified Codes: M54.5 - Low back pain Disposition: HOME, SELF-CARE Condition: Stable Departure-Patient Inst. Decision time for Depature: 09:36 Referrals: [facility] (PCP) Primary Care Physician MARGARET BALLARD APRN (Family) Primary Care Physician Patient Instructions: Low Back Pain (DC), Lumbar Muscle Strain (DC) Add. Discharge Instructions: All discharge instructions reviewed with patient and/or family. Voiced understanding. Take medications as directed. Follow-up with your Dr. in a few days for recheck. Return for worse pain, fever, vomiting, weakness, breathing problems or other concerns as needed. You may take Tylenol/acetaminophen 1000 mg every 8 hours as needed for pain as well. Scripts Ibuprofen (Ibuprofen) 800 Mg Tablet 800 MG PO Q8H PRN for PAIN, #30 TAB 0 Refills Prov: TOBY KWON MD 12/05/17 Cyclobenzaprine HCl (Cyclobenzaprine HCl) 10 Mg Tablet 10 MG PO Q8H PRN for SPASMS, #15 TAB 0 Refills Prov: TOBY KWON MD 12/05/17 Work/School Note: Work Release Form Date Seen in the Emergency Department: Dec 05, 2017 Return to Work: Dec 06, 2017 Restrictions: No Restrictions TOBY KWON MD Dec 05, 2017 08:43
[2017-12-05 08:45] LABS: BACTERIA,URINE NEGATIVE /HPF; RBC,URINE RARE /HPF; WBC,URINE RARE /HPF
[2017-12-05] MEDS ORDERED: HYDROcodone/APAP 5 MG/325 MG (LORTAB) TAB PO STA (09:26)
[2017-12-05] MEDS ORDERED: IBUP-1780 PO (09:37)
[2017-12-05] MEDS ORDERED: CYCL10TA9 PO (09:37)
[2017-12-05 09:45] VITALS: BP 128/87
== END 2017-12-05 09:45 | disposition home or self-care (01) ==
LOC: EDUNIT# 08:21 → ER 08:23
DX: M54.5 Low back pain (principal); G43.909 Migraine, unspecified, not intractable, without status migrainosus; Z77.22 Contact with and (suspected) exposure to environmental tobacco smoke (acute) (chronic)
CPT/HCPCS: 81000; 84703; 96372; 99283

== ENCOUNTER 2018-01-17 09:46 | Emergency (ER) | payer SELFPAY ==
[~2018-01-17] VITALS: Ht 172.7 cm; Wt 122.5 kg
[~2018-01-17 09:46] MED LIST changes: +CYCL10TA9 PO; +IBUP-1780 PO
--- OUTSIDE RECORDS SUMMARY | 2018-01-17 09:52 | XMS REPORT ---
Author Author MARGARET BALLARD Organization [facility] Address [address] [place] [address] Care Team Providers Care Dust Collector Ore Crushing Name Role Phone MARGAERT BALLARD Unavailable PROBLEMS Type Condition ICD9-CM Code CFY50-MR Code Onset Dates Condition Status SNOMED Code Problem Low back pain M54.5 Active 213291278748 Problem Dyslipidemia (high LDL; low HDL) E78.5 Active 811215542 Problem Morbid (severe) obesity due to excess calories E66.01 Active 718372173 Problem Body mass index (BMI) of 40.0-44.9 in adult Z68.41 Active 143869557 Problem HSV-2 (herpes simplex virus 2) infection B00.9 Active 977639443 Problem Marijuana abuse F12.10 Active 74139497 Problem Irregular bleeding N92.6 Active 35963682 Problem Hyperinsulinemia E16.1 Active 21120603 ALLERGIES No Known Allergies ENCOUNTERS Encounter Location Date Diagnosis [place] [id number] [place] [address] Nov, Generalized abdominal pain R10.84 ; Hyperinsulinemia E16.1 ; Body mass index (BMI) of 40.0-44.9 in adult Z68.41 and Elevated blood pressure reading in office without diagnosis of hypertension R03.0 [facility] [id number] [place] [phone] Aug, [place] [id number] [place] [phone] Aug, [place] [address] [address] [place] [id number] [place] [phone] Aug, Hyperinsulinemia E16.1 ; Low HDL (under 40) E78.6 ; Irregular bleeding N92.6 ; Low back pain M54.5 ; Marijuana abuse F12.10 ; HSV-2 (herpes simplex virus 2) infection B00.9 ; Body mass index (BMI) of 40.0-44.9 in adult Z68.41 and Morbid (severe) obesity due to excess calories E66.[address] [address] 02 Aug, [address] [address] 30 Jul, 2017 Encounter for test, result unknown Z32.00 [facility] [place] [address] [address] 29 May, 2017 Abdominal pain, unspecified abdominal location R10.9 and BMI 40.0-44.9, adult Z68.[address] [address] 29 May, [address] [address] 23 Oct, [address] [address] 06 Oct, 2016 Stomach ache R10.9 and Lower abdominal pain R10.[address] [address] 16 Jul, 2016 Hyperinsulinemia E16.1 ; Obesity (BMI 30-39.9) E66.9 and Encounter for evaluation regarding contraception options Z30.09 [facility] [place] [address] [address] 02 Jun, 2016 Dysuria R30.0 ; Vaginal discharge N89.8 ; Labial lesion N90.89 ; Vaginal candidiasis B37.3 ; HSV-2 (herpes simplex virus 2) infection B00.9 ; Other specified bacterial agents as the cause of diseases classified elsewhere B96.89 and Acute vaginitis N76.[address] [address] May, [address] [address] May, [place] [address] [address] May, Hyperinsulinemia E16.1 ; Low back pain M54.5 ; Irregular bleeding N92.6 and Obesity (BMI 30-39.9) E66.9 [place] [address] [address] Apr, Irregular bleeding N92.6 ; Hyperinsulinemia E16.1 ; Low HDL (under 40) E78.6 and Obesity (BMI 30-39.9) E66.[address] [address] Feb, [place] [address] [address] Jan, Hyperinsulinemia E16.1 and Irregular menses N92.[address] [address] Dec, Routine health maintenance Z00.00 ; Family history of diabetes mellitus Z83.3 ; HSV-2 (herpes simplex virus 2) infection B00.9 and Obesity (BMI 30-39.9) E66.9 [place] [address] [address] Dec, Vaginal sore N89.8 and High risk sexual behavior Z72.51 [facility] [address] [address] Dec, Acute non-recurrent sinusitis, unspecified location J01.[address] [address] Nov, Routine gynecological examination Z01.419 [facility] [address] [address] Nov, Right elbow pain M25.521 [facility] [address] [address] Aug, Abrasion of ankle, left S90.512A [facility] [address] [place] [id number] [place] [phone] Aug, Encounter for Depo-Provera contraception Z30.42 [facility] [address] [place] [id number] [place] [phone] 10 Jun, 2015 Upper respiratory tract infection, unspecified type 465.9 [place] [address] [address] 14 May, 2015 Encounter for Depo-Provera contraception Z30.42 [place] [address] [address] 12 May, 2015 Surveillance of contraceptive injection Z30.42 [place] [address] [address] 11 May, 2015 Encounter for counseling regarding contraception Z30.9 ; History of drug use F19.21 ; Marijuana abuse F12.10 ; Routine screening for STI (sexually transmitted infection) Z11.3 ; Unprotected sexual intercourse Z72.51 ; Low back pain M54.5 and Irregular menses N92.6 [place] [address] [place] [id number] [place] [address] 08 May, 2015 Nexplanon removal Z30.49 IMMUNIZATIONS No Known Immunizations SOCIAL HISTORY Never Assessed REASON FOR VISIT [facility] Follow up, was seen in ER for lower back pain and sharp pain in abdomial area, N/V-awoods PLAN OF CARE Activity Details Follow Up 3 Months, prn Reason:CHM/Hyperinsulinemia VITAL SIGNS Height 68 in 2017-11-15 Weight 274.2 lbs 2017-11-15 Temperature 97.9 degrees Fahrenheit 2017-11-15 Heart Rate 122 bpm 2017-11-15 Respiratory Rate 20 2017-11-15 BMI 41.69 kg/m2 2017-11-15 Blood pressure systolic 140 mmHg 2017-11-15 Blood pressure diastolic 78 mmHg 2017-11-15 MEDICATIONS Medication Instructions Dosage Frequency Start Date End Date Duration Status IBU 800 MG TAKE ONE TABLET BY MOUTH TWICE DAILY 90 Active MetFORMIN HCl ER 500 mg 1 tablet with evening meal for 1 week and then increase to 1 tab BID Aug, 30 day(s) Active Sucralfate 1 GM Orally Twice a day 1 tablet on an empty stomach before meals 12h Nov, Nov, 14 days Active Omeprazole 20 mg Orally twice a day 1 capsule 12h Nov, 30 day(s ) Active RESULTS Name Result Date Reference Range H PYLORI (IN HOUSE) 2017-11-15 H. PYLORI Negative Control + Lot # [id number] Exp date 03/29/18 PROCEDURES Procedure Date Ordered Result Body Site IMMUNOASSAY,INFECTIOUS AGENT November 15, 2017 INSTRUCTIONS MEDICATIONS ADMINISTERED No Known Medications MEDICAL (GENERAL) HISTORY Type Description Date Medical History HSV 2 Medical History History of drug use Medical History hyperinsulinemia Medical History dyslipidemia Hospitalization History Mental Observation
--- OUTSIDE RECORDS SUMMARY | 2018-01-17 09:57 | XMS REPORT | Continuity of Care Document ---
Author Author [facility] Organization [facility] Address Unknown Phone Unavailable Allergies Active Description Code Type Severity Reaction Onset Reported/Identified Relationship to Patient Clinical Status Yes No Known Drug Allergies [id number] Drug Allergy Unknown N/A 09/06/2016 Medications There is no data. Problems Date Dx Coded Attending Type Code Diagnosis Diagnosed By 01/23/2016 MARGARET BALLARD SYSTEM ADMINISTRATION ADVISOR Ot E16.1 OTHER HYPOGLYCEMIA 01/23/2016 MARGARET BALLARD SYSTEM ADMINISTRATION ADVISOR Ot N92.6 IRREGULAR MENSTRUATION, UNSPECIFIED 09/06/2016 MARGARET BALLARD SYSTEM ADMINISTRATION ADVISOR Ot E16.1 OTHER HYPOGLYCEMIA 09/06/2016 MARGARET BALLARD SYSTEM ADMINISTRATION ADVISOR Ot N92.6 IRREGULAR MENSTRUATION, UNSPECIFIED 09/06/2016 DOROTHEA [...] NAUSEA WITH VOMITING, UNSPECIFIED 12/20/2016 MARGARET BALLARD SYSTEM ADMINISTRATION ADVISOR Ot E16.1 OTHER HYPOGLYCEMIA 12/20/2016 MARGARET BALLARD SYSTEM ADMINISTRATION ADVISOR Ot N92.6 IRREGULAR MENSTRUATION, UNSPECIFIED 12/20/2016 ALEX MOCTEZUMA SYSTEM ADMINISTRATION ADVISOR Ot R51 HEADACHE 12/20/2016 MARGARET BALLARD SYSTEM ADMINISTRATION ADVISOR Ot E16.1 OTHER HYPOGLYCEMIA 12/20/2016 MARGARET BALLARD SYSTEM ADMINISTRATION ADVISOR Ot N92.6 IRREGULAR MENSTRUATION, UNSPECIFIED 12/22/2016 ALEX MOCTEZUMA SYSTEM ADMINISTRATION ADVISOR Ot R51 HEADACHE 04/11/2017 JOANNE BALLARDELE L[place] SYSTEM ADMINISTRATION ADVISOR Ot E16.1 OTHER HYPOGLYCEMIA 04/11/2017 NELLIEMARGARET [place] SYSTEM ADMINISTRATION ADVISOR Ot N92.6 IRREGULAR MENSTRUATION, UNSPECIFIED 04/11/2017 DOROTHEA THOMAS, NOHELIA T Ot G43.909 MIGRAINE, UNSP, NOT INTRACTABLE, WITHOUT 04/11/2017 DOROTHEA THOMAS, NOHELIA T Ot R10.13 EPIGASTRIC PAIN 04/11/2017 DOROTHEA THOMAS, NOHELIA T Ot R10.9 UNSPECIFIED ABDOMINAL PAIN 04/11/2017 DOROTHEA THOMAS, NOHELIA T Ot R11.0 NAUSEA 04/11/2017 DOROTHEA THOMAS, NOHELIA T Ot Z77.22 CNTCT W AND EXPSR TO ENVIRON TOBACCO SMO 04/11/2017 MARGARET BALLARD SYSTEM ADMINISTRATION ADVISOR Ot E16.1 OTHER HYPOGLYCEMIA 04/11/2017 MARGARET BALLARD SYSTEM ADMINISTRATION ADVISOR Ot N92.6 IRREGULAR MENSTRUATION, UNSPECIFIED 11/07/2017 MARGARET BALLARD SYSTEM ADMINISTRATION ADVISOR Ot E16.1 OTHER HYPOGLYCEMIA 11/07/2017 JOANNE BALLARDELE R SYSTEM ADMINISTRATION ADVISOR Ot N92.6 IRREGULAR MENSTRUATION, UNSPECIFIED 11/07/2017 TOBY [...] W AND EXPSR TO ENVIRON TOBACCO SMO 12/07/2017 TOBY KWON MD Ot G43.909 MIGRAINE, UNSP, NOT INTRACTABLE, WITHOUT 12/07/2017 TOBY KWON MD Ot M54.5 LOW BACK PAIN 12/07/2017 TOBY KWON MD Ot Z77.22 CNTCT W AND EXPSR TO ENVIRON TOBACCO [facility] Procedures There is no data. Results Test [...] plasma albumin measurement (mass/volume) 4.1 g/dL 3.2-4.5 Complete urinalysis with reflex to culture - 12/05/17 08:25 Urine color determination YELLOW NRG Urine clarity determination CLEAR NRG Urine pH measurement by test strip 5 5-9 Specific gravity of urine by test strip 1.025 1.016- 1.022 Urine protein assay by test [...] erythrocyte count by microscopy (number/high power field) RARE NRG Automated urine sediment leukocyte count by [...] urinalysis with reflex to culture NO NRG Encounters ACCT No. Visit Date/Time Discharge Status Pt. Type Provider Facility Loc./Unit Complaint [id number] 12/05/2017 08:23:00 12/05/2017 09:45:00 DIS Outpatient TOBY KWON MD [facility] ER BACK PAIN [id number] 11/07/2017 08:17:00 11/07/2017 09:53:00 DIS Outpatient TOBY KWON MD [facility] ER VOMITING,ABD PAIN [id number] 04/11/2017 07:25:00 04/11/2017 08:45:00 DIS Emergency DOROTHEA THOMAS, NOHELIA Esparza [facility] ER LEFT ABD PAIN [id number] 12/20/2016 09:02:00 12/20/2016 12:19:00 DIS Emergency ALEX MOCTEZUMA SYSTEM ADMINISTRATION ADVISOR [facility] ER HEADACHE/ABD PAIN/NAUSEA [id number] 09/06/2016 14:38:00 09/06/2016 16:49:00 DIS Emergency DOROTHEA THOMAS, NOHELIA Esparza [facility] ER MIGRAINE SORE THROAT VOMITING EARACHE [id number] 01/21/2016 11:09:00 01/21/2016 23:59:59 CLS Outpatient MARGARET BALLARD APRN [facility] RAD HYPERINSULINEMIA, IRREGULAR MENSES [id number] 04/02/2015 08:18:00 04/02/2015 23:59:59 CLS Outpatient JOANNA WHALEN [facility] [id number] 11/15/2017 13:20:00 11/15/2017 23:59:59 [id number] 08/12/2017 08:40:00 Document Registration [id number] 06/20/2016 20:05:00 Document Registration [id number] 10/22/2016 13:05:00 Document Registration
[2018-01-17] MEDS ORDERED: NS IV 1000 ML 1,000 ML IV ONE (10:10)
--- NOTE | 2018-01-17 10:12 | ED Abdominal Pain ---
General Chief Complaint: Abdominal/GI Problems Stated Complaint: ABD PAIN Source of Information: Patient Exam Limitations: No Limitations (LIV LUBIN) History of Present Illness Date Seen by Provider: Jan 17, 2018 Time Seen by Provider: 10:05 Initial Comments Patient presents to the ER by private conveyance with chief complaint that she was getting up this morning to go to work when she began to experience some sharp stabbing pains in her left lower quadrant abdomen. No diarrhea but she's been having nausea and vomiting several times this morning. She rates the pain as severe. Difficulty with movement better when lying still. No history of kidney stones. No hematuria or painful urination. (LIV LUBIN) Allergies and Home Medications Allergies Coded Allergies: No Known Drug Allergies (Unverified , 09/06/16) Home Medications Cephalexin 500 Mg Capsule, 500 MG PO BID Prescribed by: DEANNE TREVINO on 01/17/18 1226 Cyclobenzaprine HCl 10 Mg Tablet, 10 MG PO Q8H PRN for SPASMS Prescribed by: TOBY KWON on 12/05/17 0937 Hydrocodone Bit/Acetaminophen 1 Tab Tab, 1 EACH PO Q6H PRN for PAIN Prescribed by: DEANNE TREVINO on 01/17/18 1226 Ibuprofen 800 Mg Tablet, 800 MG PO Q8H PRN for PAIN Prescribed by: TOBY KWON on 12/05/17 0937 Ondansetron 4 Mg Tab.rapdis, 4 MG SL Q4H PRN for NAUSEA/VOMITING-1ST LINE Prescribed by: DEANNE TREVINO on 01/17/18 1226 Patient Home Medication List Home Medication List Reviewed: Yes (LIV LUBIN) Review of Systems Review of Systems Constitutional: No chills, No diaphoresis, No fever, No malaise EENTM: No Blurred Vision, No Double Vision Respiratory: Denies Cough, Denies Shortness of Air Cardiovascular: Denies Chest Pain, Denies Lightheadedness Gastrointestinal: Denies Constipated, Denies Diarrhea; Nausea, Poor Appetite, Poor Fluid Intake, Vomiting Genitourinary: Burning; Denies Discharge; Flank Pain Musculoskeletal: No back pain, No joint pain (LIV LUBIN) Past Mtweojh-Kugucj-Elhqtw Hx Patient Social History Alcohol Use: Denies Use Recreational Drug Use: No Smoking Status: Never a Smoker 2nd Hand Smoke Exposure: Yes Recent Foreign Travel: No Contact w/Someone Who Travel: No Recent Hopitalizations: No (LIV LUBIN) Immunizations Up To Date Tetanus Booster (TDap): Less than 5yrs (LIV LUBIN) Seasonal Allergies Seasonal Allergies: No (LIV LUBIN) Past Medical History Surgeries: No Respiratory: No Cardiac: No Neurological: Yes Headaches /Migraines Genitourinary: No Gastrointestinal: No Musculoskeletal: No Endocrine: No HEENT: No Cancer: No Psychosocial: No Integumentary: No Blood Disorders: No (LIV LUBIN) Family Medical History No Pertinent Family Hx (LIV LUBIN) Physical Exam Vital Signs Vital Signs - First Documented 01/17/18 10:05 Temp 97.6 Pulse 103 Resp 20 B/P (MAP) 141/101 (114) Pulse Ox 98 O2 Delivery Room Air (BELINDA,DEANNE) Vital Signs Capillary Refill : (LIV LUBIN) Height/Weight/BMI Height: 5'8.00" Weight: 270lbs. oz. 122.967563zu; BMI Method:Stated General Appearance: WD/WN, mild distress HEENT: PERRL/EOMI, pharynx normal Neck: non-tender, full range of motion Respiratory: chest non-tender, lungs clear, normal breath sounds, no respiratory distress, no accessory muscle use Cardiovascular: normal peripheral pulses, regular rate, rhythm, no edema Gastrointestinal: normal bowel sounds, soft, tenderness (right flank) Extremities: normal inspection, normal capillary refill Back: normal inspection, CVA tenderness (R), CVA tenderness (L) (LIV LUBIN ) Progress/Results/Core Measures Results/Orders Lab Results Laboratory Tests Test 01/17/18 10:25 01/17/18 10:41 Range/Units White Blood Count 10.7 4.3-11.0 10^3/uL Red Blood Count 4.88 4.35-5.85 10^6/uL Hemoglobin 13.2 11.5-16.0 G/DL Hematocrit 41 35-52 % Mean Corpuscular Volume 83 80-99 FL Mean Corpuscular Hemoglobin 27 25-34 PG Mean Corpuscular Hemoglobin Concent 33 32-36 G/DL Red Cell Distribution Width 13.8 10.0-14.5 % Platelet Count 338 130-400 10^3/uL Mean Platelet Volume 9.5 7.4-10.4 FL Neutrophils (%) (Auto) 68 42-75 % Lymphocytes (%) (Auto) 25 12-44 % Monocytes (%) (Auto) 6 0-12 % Eosinophils (%) (Auto) 1 0-10 % Basophils (%) (Auto) 0 0-10 % Neutrophils # (Auto) 7.3 1.8-7.8 X 10^3 Lymphocytes # (Auto) 2.7 1.0-4.0 X 10^3 Monocytes # (Auto) 0.6 0.0-1.0 X 10^3 Eosinophils # (Auto) 0.2 0.0-0.3 10^3/uL Basophils # (Auto) 0.0 0.0-0.1 10^3/uL Sodium Level 141 135-145 MMOL/L Potassium Level 4.1 3.6-5.0 MMOL/L Chloride Level 110 H 98-107 MMOL/L Carbon Dioxide Level 21 21-32 MMOL/L Anion Gap 10 5-14 MMOL/L Blood Urea Nitrogen 14 7-18 MG/DL Creatinine 0.77 0.60-1.30 MG/DL Estimat Glomerular Filtration Rate > 60 BUN/Creatinine Ratio 18 Glucose Level 135 H 70-105 MG/DL Calcium Level 10.1 8.5-10.1 MG/DL Corrected Calcium 9.8 8.5-10.1 MG/DL Magnesium Level 2.2 1.8-2.4 MG/DL Total Bilirubin 0.2 0.1-1.0 MG/DL Aspartate Amino Transf (AST/SGOT) 14 5-34 U/L Alanine Aminotransferase (ALT/SGPT) 21 0-55 U/L Alkaline Phosphatase 102 40-136 U/L Total Protein 7.7 6.4-8.2 GM/DL Albumin 4.4 3.2-4.5 GM/DL Serum Test, Qualitative NEGATIVE NEGATIVE Urine Color YELLOW Urine Clarity SLIGHTLY CLOUDY Urine pH 5 5-9 Urine Specific [place] 1.025 H 1.016-1.022 Urine Protein 2+ H NEGATIVE Urine Glucose (UA) NEGATIVE NEGATIVE Urine Ketones NEGATIVE NEGATIVE Urine Nitrite NEGATIVE NEGATIVE Urine Bilirubin NEGATIVE NEGATIVE Urine Urobilinogen NORMAL NORMAL MG/DL Urine Leukocyte Esterase 1+ H NEGATIVE Urine RBC (Auto) 5+ H NEGATIVE Urine RBC 10-25 H /HPF Urine WBC 0-2 /HPF Urine Squamous Epithelial Cells 2-5 /HPF Urine Crystals NONE /LPF Urine Bacteria TRACE /HPF Urine Casts NONE /LPF Urine Mucus SMALL H /LPF Urine Culture Indicated NO Urine Opiates Screen NEGATIVE NEGATIVE Urine Oxycodone Screen NEGATIVE NEGATIVE Urine Methadone Screen NEGATIVE NEGATIVE Urine Propoxyphene Screen NEGATIVE NEGATIVE Urine Barbiturates Screen NEGATIVE NEGATIVE Ur Tricyclic Antidepressants Screen NEGATIVE NEGATIVE Urine Phencyclidine Screen NEGATIVE NEGATIVE Urine Amphetamines Screen NEGATIVE NEGATIVE Urine Methamphetamines Screen NEGATIVE NEGATIVE Urine Benzodiazepines Screen NEGATIVE NEGATIVE Urine Cocaine Screen NEGATIVE NEGATIVE Urine Cannabinoids Screen POSITIVE H NEGATIVE (DEANNE TREVINO) My Orders Orders - DEANNE TREVINO Fentanyl Injection (Sublimaze Injection (01/17/18 11:15) Ct Abd/Pelvis Wo(Kidney Stone) (01/17/18 11:15) Abdomen/Kub 1view (01/17/18 11:15) Ketorolac Injection (Toradol Injection) (01/17/18 12:30) Ondansetron Injection (Zofran Injectio (01/17/18 12:30) (DEANNE TREVINO) Medications Given in ED Current Medications Medications Dose Ordered Sig/Momo Route Start Time Stop Time Status Last Admin Dose Admin Fentanyl Citrate 50 mcg ONCE ONCE IVP 01/17/18 11:15 01/17/18 11:16 DC 01/17/18 11:20 50 MCG Ondansetron HCl 4 mg ONCE ONCE IVP 01/17/18 10:15 01/17/18 10:16 DC 01/17/18 10:40 4 MG Sodium Chloride 1,000 ml @ 0 mls/hr Q0M ONCE IV 01/17/18 10:10 01/17/18 10:12 DC 01/17/18 10:40 1,000 MLS/HR (DEANNE TREVINO) Vital Signs/I&O 01/17/18 10:05 Temp 97.6 Pulse 103 Resp 20 B/P (MAP) 141/101 (114) Pulse Ox 98 O2 Delivery Room Air (DEANNE TREVINO) Departure Impression Primary Impression: Kidney stone Disposition: 01 HOME, SELF-CARE Condition: Stable/Unchanged Departure-Patient Inst. Decision time for Depature: 12:23 (DEANNE TREVINO) Referrals: [facility] (PCP) Primary Care Physician MARGARET BALLARD APRN (Family) Primary Care Physician JOSE ENRIQUE BASS MD Patient Instructions: Kidney Stones in Adults Add. Discharge Instructions: Take medication as directed. Follow up with [facility] within 1 week for recheck. Follow-up with Dr. Bass within 1 week for recheck. Call today for appointment times. Strain all urine if you should pass a stone take it with due to the urology appointment. Return back to the emergency room for any worsening symptoms concerns as needed. All discharge instructions reviewed with patient and/or family. Voiced understanding. Scripts Cephalexin (Keflex) 500 Mg Capsule 500 MG PO BID for 7 Days, #14 CAP Prov: DEANNE TREVINO 01/17/18 Ondansetron (Zofran Odt) 4 Mg Tab.rapdis 4 MG SL Q4H PRN for NAUSEA/VOMITING-1ST LINE, #14 TAB Prov: DEANNE TREVINO 01/17/18 Hydrocodone Bit/Acetaminophen (Hydrocodone/Acetaminophen 5/325mg Tablet) 1 Tab Tab 1 EACH PO Q6H PRN for PAIN, #14 TAB Prov: DEANNE TREVINO 01/17/18 LIV LUBIN Jan 17, 2018 10:12 DEANNE TREVINO Jan 17, 2018 12:26
[2018-01-17] MEDS ORDERED: ONDANSETRON 4 MG/2 ML (SDV) Z0FRAN IVP ONE ×2 (10:15→12:30)
[2018-01-17 10:35] LABS: BASOPHILS % (AUTO) 0 % (0-10); EOSINOPHILS # (AUTO) 0.2 10^3/uL (0.0-0.3); EOSINOPHILS % (AUTO) 1 % (0-10); HEMATOCRIT 41 % (35-52); HEMOGLOBIN 13.2 G/DL (11.5-16.0); LYMPHOCYTES # (AUTO) 2.7 X 10^3 (1.0-4.0); LYMPHOCYTES % (AUTO) 25 % (12-44); MEAN CORPUSCULAR HEMOGLOBIN 27 PG (25-34); MEAN CORPUSCULAR HGB CONC 33 G/DL (32-36); MEAN CORPUSCULAR VOLUME 83 FL (80-99); MEAN PLATELET VOLUME 9.5 FL (7.4-10.4); MONOCYTES # (AUTO) 0.6 X 10^3 (0.0-1.0); MONOCYTES % (AUTO) 6 % (0-12); NEUTROPHILS # (AUTO) 7.3 X 10^3 (1.8-7.8); NEUTROPHILS % (AUTO) 68 % (42-75); PLATELET COUNT 338 10^3/uL (130-400); RED BLOOD COUNT 4.88 10^6/uL (4.35-5.85); RED CELL DISTRIBUTION WIDTH 13.8 % (10.0-14.5); WHITE BLOOD COUNT 10.7 10^3/uL (4.3-11.0)
[2018-01-17 11:01] LABS: ALANINE AMINOTRANSFERASE 21 U/L (0-55); ALBUMIN 4.4 GM/DL (3.2-4.5); ALKALINE PHOSPHATASE 102 U/L (40-136); BILIRUBIN,TOTAL 0.2 MG/DL (0.1-1.0); BUN/CREATININE RATIO 18; CALCIUM 10.1 MG/DL (8.5-10.1); CARBON DIOXIDE 21 MMOL/L (21-32); CHLORIDE 110 MMOL/L (98-107); CREATININE SERUM 0.77 MG/DL (0.60-1.30); GFR ESTIMATED > 60; GLUCOSE 135 MG/DL (70-105); MAGNESIUM 2.2 MG/DL (1.8-2.4); POTASSIUM 4.1 MMOL/L (3.6-5.0); SODIUM 141 MMOL/L (135-145); TOTAL PROTEIN 7.7 GM/DL (6.4-8.2)
[2018-01-17 11:11] LABS: BILIRUBIN,URINE NEGATIVE (NEGATIVE); CLARITY,URINE SLIGHTLY CLOUDY; COLOR,URINE YELLOW; GLUCOSE, URINE (UA) NEGATIVE (NEGATIVE); KETONES,URINE NEGATIVE (NEGATIVE); LEUKOCYTE ESTERASE ,URINE 1+ (NEGATIVE); NITRITE,URINE NEGATIVE (NEGATIVE); PH,URINE 5 (5-9); PROTEIN,URINE 2+ (NEGATIVE); UROBILINOGEN,URINE NORMAL (NORMAL)
[2018-01-17] MEDS ORDERED: fentaNYL INJECTION 100 MCG/2 ML AMP IVP ONE (11:15)
[2018-01-17 11:26] LABS: BACTERIA,URINE TRACE /HPF; WBC,URINE 0-2 /HPF
[2018-01-17 11:31] LABS: AMPHETAMINE SCREEN, URINE NEGATIVE (NEGATIVE); BARBITURATE SCREEN URINE NEGATIVE (NEGATIVE); BENZODIAZEPINES SCREEN URINE NEGATIVE (NEGATIVE); CANNABINOID SCREEN, URINE POSITIVE (NEGATIVE); COCAINE SCREEN URINE NEGATIVE (NEGATIVE); METHADONE STAT NEGATIVE (NEGATIVE); METHAMPHETAMINE SCREEN URINE S NEGATIVE (NEGATIVE); OPIATE SCREEN URINE NEGATIVE (NEGATIVE); OXYCODONE STAT NEGATIVE (NEGATIVE); PROPOXYPHENE STAT NEGATIVE (NEGATIVE); TRICYCLIC ANTIDEPRESSANTS SCRE NEGATIVE (NEGATIVE)
--- NOTE | 2018-01-17 12:00 | Diagnostic Imaging Report ---
INDICATION: Abdominal pain. KUB obtained at 12:04 p.m. FINDINGS: Abdominal bowel gas pattern is unremarkable. There is no overt obstruction or ileus. There are no suspicious calcifications. IMPRESSION: Negative abdominal film. Dictated by: Dictated on workstation # [id number]
--- NOTE | 2018-01-17 12:04 | Diagnostic Imaging Report ---
INDICATION: Left flank pain. TECHNIQUE: A CT of the abdomen and pelvis was obtain without IV contrast. COMPARISON: There is no prior study for comparison. FINDINGS: The visualized portions of the lung bases are clear. There are no pleural fluid collections. There is no free intraperitoneal air. The bony windows appear unremarkable. The liver shows no focal lesions. The gallbladder is unremarkable. The spleen, adrenals, and pancreas appear normal. The right kidney appears normal. The left kidney shows [id number] hydronephrosis and hydroureter. The left ureter is mildly prominent throughout its course but no definite stone is visualized. There is no retroperitoneal mass or adenopathy. There is no ascites or abnormal fluid collection. The visualized bowel loops appear unremarkable. There is no adnexal mass or free fluid. IMPRESSION: There is mild to moderate left hydronephrosis and hydroureter with no visible stone at this time. The differential diagnosis would include a recently passed stone or a nonopaque stone. Correlate with clinical symptoms. There are no other significant findings. Dictated by: Dictated on workstation # [id number]
[2018-01-17] MEDS ORDERED: ACHD5005 PO (12:26)
[2018-01-17] MEDS ORDERED: CEPH-507 PO (12:26)
[2018-01-17] MEDS ORDERED: ONDA4TAB8 SL (12:26)
[2018-01-17] MEDS ORDERED: KETOROLAC 30 MG/ML VIAL IVP ONE (12:30)
[2018-01-17 13:19] VITALS: BP 141/101
== END 2018-01-17 13:19 | disposition home or self-care (01) ==
LOC: EDUNIT# 09:46 → ER 09:48
DX: N13.2 Hydronephrosis with renal and ureteral calculous obstruction (principal); R10.32 Left lower quadrant pain; G43.909 Migraine, unspecified, not intractable, without status migrainosus; Z77.22 Contact with and (suspected) exposure to environmental tobacco smoke (acute) (chronic)
CPT/HCPCS: 36415; 74018; 74176; 80053; 80306; 81000; 83735; 84703; 85025; 96361; 96374; 96375; 96376

== ENCOUNTER 2018-03-02 13:43 | Emergency (ER) | payer SELFPAY ==
[~2018-03-02] VITALS: Ht 172.7 cm; Wt 122.5 kg
[~2018-03-02 13:43] MED LIST changes: +ACHD5005 PO; +CEPH-507 PO
--- NOTE | 2018-03-02 16:41 | ED GI ---
General Chief Complaint: Abdominal/GI Problems Stated Complaint: DIARRHEA Nursing Triage Note: PT STATES DIARRHEA, NAUSEA, AND ABD PAIN SINCE 299. Sepsis Screen: No Definite Risk Source of Information: Patient Exam Limitations: No Limitations History of Present Illness Date Seen by Provider: Mar 02, 2018 Time Seen by Provider: 16:41 Initial Comments 22-year-old female patient presents to the emergency department complaints of nausea, diarrhea, and generalized abdominal cramping and he is or 300 today. Denies using any ypys-mbo-bklrkrk medications. States stools are a mix of water and chunks. She has had less than 10 stools today. Timing/Duration: Intermittent, Other (299 today) Severity/Quality: Cramping Location: Generalized Abdomen Radiation: No Radiation Activities at Onset: Sleeping Modifying Factors: Worsens With Defecating Allergies and Home Medications Allergies Coded Allergies: No Known Drug Allergies (Unverified , 09/06/16) Home Medications Cephalexin 500 Mg Capsule, 500 MG PO BID Prescribed by: DEANNE TREVINO on 01/17/18 1226 Cyclobenzaprine HCl 10 Mg Tablet, 10 MG PO Q8H PRN for SPASMS Prescribed by: TOBY KWON on 12/05/17 0937 Hydrocodone Bit/Acetaminophen 1 Tab Tab, 1 EACH PO Q6H PRN for PAIN Prescribed by: DEANNE TREVINO on 01/17/18 1226 Ibuprofen 800 Mg Tablet, 800 MG PO Q8H PRN for PAIN Prescribed by: TOBY KWON on 12/05/17 0937 Ondansetron 4 Mg Tab.rapdis, 4 MG SL Q4H PRN for NAUSEA/VOMITING-1ST LINE Prescribed by: DEANNE TREVINO on 01/17/18 1226 Ondansetron 8 Mg Tab.rapdis, 8 MG PO Q6H PRN for NAUSEA/VOMITING-1ST LINE Prescribed by: GUERITA LUJAN on 03/02/18 1702 Patient Home Medication List Home Medication List Reviewed: Yes Review of Systems Review of Systems Constitutional: No chills, No fever; malaise Respiratory: No Symptoms Reported Cardiovascular: No Symptoms Reported Gastrointestinal: See HPI; Denies Abdomen Distended; Abdominal Pain ( generalized abdominal cramping. ); Denies Blood Streaked Stools, Denies Constipated; Diarrhea, Nausea, Poor Appetite; Denies Poor Fluid Intake, Denies Rectal Bleeding, Denies Vomiting Genitourinary: Denies Burning, Denies Frequency, Denies Flank Pain, Denies Hematuria, Denies Pain Musculoskeletal: no symptoms reported Skin: no symptoms reported Psychiatric/Neurological: No Symptoms Reported All Other Systems Reviewed Negative Unless Noted: Yes (Negative excepted noted.) Past Dpekvjs-Tszwkl-Kgkryy Hx Past Med/Social Hx: Reviewed Nursing Past Med/Soc Hx Patient Social History Alcohol Use: Rarely Uses Alcohol Beverage of Choice: [place] Recreational Drug Use: No Smoking Status: Former Smoker Former Smoker, Quit: Feb 13, 2015 2nd Hand Smoke Exposure: Yes Recent Foreign Travel: No Contact w/Someone Who Travel: No Recent Infectious Disease Expo: No Recent Hopitalizations: No Immunizations Up To Date Tetanus Booster (TDap): Less than 5yrs Seasonal Allergies Seasonal Allergies: No Past Medical History Surgeries: No Respiratory: No Cardiac: No Neurological: Yes Headaches /Migraines : No Genitourinary: No Gastrointestinal: No Musculoskeletal: No Endocrine: No HEENT: No Cancer: No Psychosocial: No Integumentary: No Blood Disorders: No Family Medical History Reviewed Nursing Family Hx No Pertinent Family Hx Physical Exam Vital Signs Vital Signs - First Documented 03/02/18 15:30 Temp 97.7 Pulse 90 Resp 18 B/P (MAP) 137/94 (108) Pulse Ox 98 O2 Delivery Room Air Capillary Refill : Less Than 3 Seconds Height/Weight/BMI Height: 5'8.00" Weight: 270lbs. oz. 122.575007wj; BMI Method:Stated General Appearance: WD/WN, no apparent distress HEENT: PERRL/EOMI, pharynx normal Neck: non-tender, supple, normal inspection Respiratory: lungs clear, normal breath sounds, no respiratory distress, no accessory muscle use Cardiovascular: normal peripheral pulses, regular rate, rhythm, no edema, no murmur Gastrointestinal: normal bowel sounds, non tender, soft, no organomegaly; No distended Extremities: no pedal edema, normal capillary refill Back: normal inspection, no CVA tenderness Neurologic/Psychiatric: alert, normal mood/affect, oriented x 3 Skin: normal color, warm/dry Progress/Results/Core Measures Results/Orders Vital Signs/I&O 03/02/18 15:30 Temp 97.7 Pulse 90 Resp 18 B/P (MAP) 137/94 (108) Pulse Ox 98 O2 Delivery Room Air Blood Pressure Mean: 108 Departure Communication (Admissions) Patient denies any diarrhea stools since checking in to the emergency department. Denies need for medications for nausea while in the emergency department. She states she is able to drink fluids without difficulty. Plan for discharge to home. Patient follow-up with her primary care provider if no improvement in symptoms or to return to the emergency department if symptoms worsen. Impression Primary Impression: Nausea alone Additional Impression: Diarrhea Qualified Codes: R19.7 - Diarrhea, unspecified Disposition: HOME, SELF-CARE Condition: Improved Departure-Patient Inst. Decision time for Depature: 17:01 Referrals: [facility] (PCP) Primary Care Physician MARGARET BALLARD APRN (Family) Primary Care Physician Patient Instructions: [id number] Add. Discharge Instructions: All discharge instructions reviewed with patient and/or family. Voiced understanding. Medications as instructed. Tylenol and ibuprofen over-the- counter as directed for pain or fever. Drink plenty of fluids. Clear liquid diet until symptoms improve, then increase diet slowly to a low-fat, bland diet. Follow-up with your family practitioner if no improvement in symptoms in 7-10 days. Return to the emergency department for worsened symptoms or any other concerns. Scripts Ondansetron (Ondansetron Odt) 8 Mg Tab.rapdis 8 MG PO Q6H PRN for NAUSEA/VOMITING-1ST LINE, #10 TAB 0 Refills Prov: GUERITA LUJAN 03/02/18 Work/School Note: Work Release Form Date Seen in the Emergency Department: Mar 02, 2018 Return to Work: Mar 04, 2018 GUERITA LUJAN Mar 02, 2018 16:41
[2018-03-02] MEDS ORDERED: ONDA8TAB13 PO (17:02)
[2018-03-02 17:11] VITALS: BP 137/94
== END 2018-03-02 17:11 | disposition home or self-care (01) ==
LOC: EDUNIT# 13:43 → ER 13:45
DX: R19.7 Diarrhea, unspecified (principal); R11.0 Nausea; G43.909 Migraine, unspecified, not intractable, without status migrainosus; Z87.891 Personal history of nicotine dependence
CPT/HCPCS: 99282

== ENCOUNTER 2019-03-20 21:39 | Outpatient (CLI) | payer BC, OTHER ==
[~2019-03-20] VITALS: Ht 172.7 cm; Wt 111.8 kg
[~2019-03-20 21:39] MED LIST changes: +ONDA8TAB13 PO
--- NOTE | 2019-03-20 21:47 | NUR ---
DENNIS YEE presented to unit via ambulation from home/ED, accompanied by SO, with c/o abd pain. DENNIS YEE weighed, gowned, voided, and to bed. EFHM and TOCO applied, VS taken. DENNIS YEE oriented to bed controls, call light, TV, heat, and A/C controls.
[2019-03-20] MEDS ORDERED: ACET325T38 PO (22:08)
[2019-03-20] MEDS ORDERED: PREN-142 PO (22:08)
[2019-03-20] MEDS ORDERED: ASPI-999 PO (22:08)
[2019-03-20 22:11] VITALS: BP 131/69
[2019-03-20 22:17] LABS: BILIRUBIN,URINE NEGATIVE (NEGATIVE); GLUCOSE, URINE (UA) NEGATIVE (NEGATIVE); KETONES,URINE NEGATIVE (NEGATIVE); LEUKOCYTE ESTERASE ,URINE 2+ (NEGATIVE); NITRITE,URINE NEGATIVE (NEGATIVE); PH,URINE 7 (5-9); PROTEIN,URINE 1+ (NEGATIVE)
[2019-03-20 22:18] LABS: CLARITY,URINE SL CLOUDY; COLOR,URINE YELLOW
[2019-03-20 22:20] LABS: BACTERIA,URINE LARGE /HPF
--- NOTE | 2019-03-20 23:21 | NUR ---
D/C instructions given & explained per Kia Galvez, RN, pt. verbalized understanding & signed, copy of D/C instructions to pt. Pt. left WS ambulatory escorted by SO, to home via private vehicle.
== END 2019-03-20 23:21 | disposition home or self-care (01) ==
LOC: WSo 21:39 → LDRP 21:40 → WSo 23:21
PROVIDERS: ATTEND Family Medicine
DX: O26.893 Other specified pregnancy related conditions, third trimester (principal); R10.9 Unspecified abdominal pain; Z3A.34 34 weeks gestation of pregnancy
CPT/HCPCS: 81000; 87088; 99213

== ENCOUNTER 2019-04-17 19:45 | Outpatient (CLI) | payer BC, MEDICAID ==
[~2019-04-17] VITALS: Ht 172 cm; Wt 114.6 kg
[~2019-04-17 19:45] MED LIST changes: +ACET325T38 PO; +ASPI-999 PO; +PREN-142 PO
--- NOTE | 2019-04-17 19:54 | NUR ---
DENNIS YEE presented to unit via wc from ED, accompanied by mother, with c/o VOMITING/DIARRHEA/PELVIC,ABD,AND BACK PAIN. DENNIS YEE weighed, gowned, voided, and to bed. EFHM and TOCO applied, VS taken. DENNIS YEE oriented to bed controls, call light, TV, heat, and A/C controls.
[2019-04-17 20:10] VITALS: BP 101/55
[2019-04-17 20:11] LABS: BILIRUBIN,URINE NEGATIVE (NEGATIVE); CLARITY,URINE CLEAR; COLOR,URINE YELLOW; GLUCOSE, URINE (UA) NEGATIVE (NEGATIVE); KETONES,URINE NEGATIVE (NEGATIVE); LEUKOCYTE ESTERASE ,URINE NEGATIVE (NEGATIVE); NITRITE,URINE NEGATIVE (NEGATIVE); PH,URINE 6.5 (5-9); PROTEIN,URINE NEGATIVE (NEGATIVE)
[2019-04-17] MEDS ORDERED: CETI10CA PO (20:16)
[2019-04-17] MEDS ORDERED: ACYC200C PO (20:17)
[2019-04-17 20:35] LABS: WBC,URINE 0-2 /HPF
[2019-04-17 20:36] LABS: BACTERIA,URINE TRACE /HPF
--- NOTE | 2019-04-17 20:37 | NUR ---
dr. caruso called regarding pt's arrival and assessment. new orders received.
[2019-04-17] MEDS ORDERED: ONDANSETRON 4 MG/2 ML (SDV) Z0FRAN ONE (20:40)
[2019-04-17] MEDS ORDERED: NS IV 1000 ML 1,000 ML IV SCH (20:45)
[2019-04-17] MEDS ORDERED: ONDANSETRON 4 MG/2 ML (SDV) Z0FRAN IVP PRN (20:45)
--- NOTE | 2019-04-17 20:50 | NUR ---
iv start, lab here.
--- NOTE | 2019-04-17 20:59 | NUR ---
dr. caruso called for tylenol order per pt's request.
[2019-04-17] MEDS ORDERED: APAP 325 MG/10.15 ML LIQ (TYLENOL) UDC PO ONE (21:00)
[2019-04-17 21:26] LABS: BASOPHILS % (AUTO) 0 % (0-10); EOSINOPHILS % (AUTO) 0 % (0-10); HEMATOCRIT 32 % (35-52); HEMOGLOBIN 10.5 G/DL (11.5-16.0); LYMPHOCYTES # (AUTO) 1.3 X 10^3 (1.0-4.0); LYMPHOCYTES % (AUTO) 9 % (12-44); MEAN CORPUSCULAR HEMOGLOBIN 28 PG (25-34); MEAN CORPUSCULAR HGB CONC 33 G/DL (32-36); MEAN CORPUSCULAR VOLUME 87 FL (80-99); MEAN PLATELET VOLUME 9.9 FL (7.4-10.4); MONOCYTES # (AUTO) 0.7 X 10^3 (0.0-1.0); MONOCYTES % (AUTO) 5 % (0-12); NEUTROPHILS # (AUTO) 11.8 X 10^3 (1.8-7.8); NEUTROPHILS % (AUTO) 85 % (42-75); PLATELET COUNT 279 10^3/uL (130-400); WHITE BLOOD COUNT 13.9 10^3/uL (4.3-11.0)
[2019-04-17 21:39] LABS: ALANINE AMINOTRANSFERASE 29 U/L (0-55); ALBUMIN 3.2 GM/DL (3.2-4.5); ALKALINE PHOSPHATASE 236 U/L (40-136); BILIRUBIN,TOTAL 0.3 MG/DL (0.1-1.0); BUN/CREATININE RATIO 15; CALCIUM 8.8 MG/DL (8.5-10.1); CARBON DIOXIDE 16 MMOL/L (21-32); CHLORIDE 107 MMOL/L (98-107); GFR ESTIMATED > 60; GLUCOSE 71 MG/DL (70-105); POTASSIUM 3.7 MMOL/L (3.6-5.0); SODIUM 136 MMOL/L (135-145); TOTAL PROTEIN 6.4 GM/DL (6.4-8.2)
[2019-04-17 21:45] VITALS: BP 105/54
--- NOTE | 2019-04-17 21:50 | NUR ---
dr. caruso called, left.
[2019-04-17 22:13] VITALS: BP 105/54
--- NOTE | 2019-04-17 22:15 | NUR ---
pt states feeling better, denies n/v/d since iv fluids given with zofran iv.
--- NOTE | 2019-04-17 22:24 | NUR ---
dr. jones called and reviewed pt's status with dr. lomeli orders given.
--- NOTE | 2019-04-17 22:30 | NUR ---
discharge instructions read and reviewed with pt. pt verbalized understanding. dr. jones to call in rx for rafa tomorrow for pt.
--- NOTE | 2019-04-17 22:35 | NUR ---
pt off unit via wc per request with mother.
[2019-04-17 23:18] VITALS: BP 105/54
--- NOTE | 2019-04-18 08:10 | Physician Query-Final Dx ---
ROBERT LEIVA 04/18/19 0810: Clinic Account Progress/Dx Physician Query: Please give diagnosis Please include # weeks gestation Date of Service Apr 17, 2019 at 19:45 NASIR GARCIA DO 04/20/19 0822: Clinic Account Progress/Dx DIAGNOSIS: Diagnosis 37w4d GA gastroenteritis w/ nausea/vomting and diarrhea dehydration ROBERT LEIVA Apr 18, 2019 08:10 POSNASIR GARCIA DO Apr 20, 2019 08:22 POS
== END 2019-04-17 22:35 | disposition home or self-care (01) ==
LOC: WSo 19:45 → LDRP 19:45 → WSo 22:35
PROVIDERS: ATTEND Family Medicine
DX: O26.899 Other specified pregnancy related conditions, unspecified trimester (principal); Z3A.00 Weeks of gestation of pregnancy not specified
CPT/HCPCS: 36415; 80053; 81000; 85025; 96360; 96374; 99213

== ENCOUNTER 2019-05-01 03:59 | Inpatient (IN) | payer BC, MEDICAID ==
[2019-05-01] VITALS (81 sets, daily range): BP systolic 89–146; BP diastolic 50–84
[~2019-05-01] VITALS: Ht 172 cm; Wt 115.8 kg
[~2019-05-01 03:59] MED LIST changes: +ACYC200C PO; +CETI10CA PO
--- NOTE | 2019-05-01 04:10 | NUR ---
DENNIS YEE presented to unit via ambulatory from ED, accompanied by family, with c/o possible rupture of membranes and LABOR. DENNIS YEE weighed, gowned, voided, and to bed. EFHM and TOCO applied, VS taken. DENNIS YEE oriented to bed controls, call light, TV, heat, and A/C controls.
[2019-05-01] MEDS ORDERED: MINERAL OIL CONCENTRATE 99.9% 15 ML UDC TOP PRN (05:30)
[2019-05-01] MEDS ORDERED: OXYTOCIN/NORMAL SALINE 500 ML IV SCH (05:32)
[2019-05-01] MEDS ORDERED: GUAI600T43 PO (05:46)
[2019-05-01] MEDS: D5 LR IV SOLUTION 1,000 ML IV SCH ×3 (06:00→21:16)
[2019-05-01] MEDS ORDERED: CATHETER FLUSH 10 ML SYR IV SCH (06:00)
[2019-05-01 06:38] LABS: BASOPHILS % (AUTO) 0 % (0-10); EOSINOPHILS # (AUTO) 0.1 10^3/uL (0.0-0.3); EOSINOPHILS % (AUTO) 1 % (0-10); HEMATOCRIT 32 % (35-52); HEMOGLOBIN 10.4 G/DL (11.5-16.0); LYMPHOCYTES % (AUTO) 20 % (12-44); MEAN CORPUSCULAR HEMOGLOBIN 28 PG (25-34); MEAN CORPUSCULAR HGB CONC 32 G/DL (32-36); MEAN CORPUSCULAR VOLUME 86 FL (80-99); MEAN PLATELET VOLUME 9.6 FL (7.4-10.4); MONOCYTES # (AUTO) 0.6 X 10^3 (0.0-1.0); MONOCYTES % (AUTO) 6 % (0-12); NEUTROPHILS # (AUTO) 7.3 X 10^3 (1.8-7.8); NEUTROPHILS % (AUTO) 73 % (42-75); PLATELET COUNT 306 10^3/uL (130-400); RED CELL DISTRIBUTION WIDTH 13.4 % (10.0-14.5); WHITE BLOOD COUNT 9.9 10^3/uL (4.3-11.0)
--- NOTE | 2019-05-01 07:30 | NUR ---
THIS RN INTRODUCES SELF TO PT AND FAMILY. PHYSICAL ASSESSMENT COMPLETE, VSS. PLAN OF CARE DISCUSSED, QUESTIONS ANSWERED. CALL LIGHT WITHIN REACH.
--- NOTE | 2019-05-01 08:27 | History & Physical-OB ---
OB - Chief Complaint & HPI Date/Time Date of Admission: Date of Admission: May 01, 2019 at 05:13 Date seen by a Provider: May 01, 2019 Time Seen by a Provider: 08:21 Chief Complaint/History OB-Reason for Admission/Chief: Rupture of Membranes Hx : 1 Hx Para: 0 Expected Date of Delivery: May 04, 2019 Gestational Age in Weeks: 39 Gestational Age in Days: 4 History of Labs O+, RI, HIV/HepB/RPR NR. 1 hour glucola nml. GBS neg. 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 , on acyclovir suppression) Obstetrical History Hx : 1 Hx Para: 0 Delivery History Hx Blood Disorders: No Adverse Rxn to Tranfusion: No Patient Past Medical History PMHx: Glucose intolerance Social History/Family History HIV/AIDS: No Recent Infectious Disease Expo: No Sexually Transmitted Disease: Yes (HSV, Chlamydia) Alcohol Use: Denies Use Recreational Drug Use: No Smoking Cessation: Never smoker 2nd Hand Smoke Exposure: No Immunizations Tetanus Booster (TDap): Less than 5yrs (02/22/2019) Date of Influenza Vaccine: Feb 13, 2019 Rubella: immune RPR/VDRL: Negative GBS Status: Negative HBsAG: Negative OB - Admission Exam Physical Exam Vitals: Vital Signs 05/01/19 05/01/19 06:59 07:00 Temp 36.5 Pulse 85 Resp 18 B/P (MAP) 110/66 (81) Pulse Ox 98 O2 Delivery Room Air HEENT: NCAT Abdomen: Non tender Extremities: Edema (trace) Cervical Dilatation: 2cm Effacement: 0% Station: -3 Membranes: Ruptured Amniotic Fluid: Clear Heart Rate: 130's Decelerations: No Decelerations Short Term Variability: Present [employer] Variability: Average (6-25) Contractions on Admission: None Labs Laboratory Tests Test 05/01/19 06:20 Range/Units White Blood Count 9.9 4.3-11.0 10^3/uL Red Blood Count 3.77 L 4.35-5.85 10^6/uL Hemoglobin 10.4 L 11.5-16.0 G/DL Hematocrit 32 L 35-52 % Mean Corpuscular Volume 86 80-99 FL Mean Corpuscular Hemoglobin 28 25-34 PG Mean Corpuscular Hemoglobin Concent 32 32-36 G/DL Red Cell Distribution Width 13.4 10.0-14.5 % Platelet Count 306 130-400 10^3/uL Mean Platelet Volume 9.6 7.4-10.4 FL Neutrophils (%) (Auto) 73 42-75 % Lymphocytes (%) (Auto) 20 12-44 % Monocytes (%) (Auto) 6 0-12 % Eosinophils (%) (Auto) 1 0-10 % Basophils (%) (Auto) 0 0-10 % Neutrophils # (Auto) 7.3 1.8-7.8 X 10^3 Lymphocytes # (Auto) 2.0 1.0-4.0 X 10^3 Monocytes # (Auto) 0.6 0.0-1.0 X 10^3 Eosinophils # (Auto) 0.1 0.0-0.3 10^3/uL Basophils # (Auto) 0.0 0.0-0.1 10^3/uL OB - Assessment/Plan/Diagnosis Assessment Assessment: rupture of membranes Admission Dx Spontaneous rupture of membranes at 39 weeks gestation Term intrauterine History of HSV 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
[2019-05-01] MEDS ORDERED: SUFENTA 0.6MCG/ML BUPIVA 0.125 100 ML ONE (08:50)
--- NOTE | 2019-05-01 08:50 | NUR ---
ANESTHESIA CALLED BY THIS RN FOR EPIDURAL PLACEMENT
[2019-05-01] MEDS ORDERED: fentaNYL INJECTION 100 MCG/2 ML AMP ONE (08:59)
[2019-05-01] MEDS ORDERED: BUPIVACAINE 0.25% 30 ML (SENSORCAINE) VIAL ONE (08:59)
--- NOTE | 2019-05-01 10:24 | NUR ---
PT STILL RATING PAIN WITH UC A 7-8 OUT OF 10 AND STATES SHE DOES NOT FEEL NUMB AT ALL AFTER EPIDURAL PLACEMENT. THIS RN NOTIFIES DR MARINO. STATES HE WILL BE UP TO REASSESS IN A FEW MINUTES.
[2019-05-01] MEDS ORDERED: LIDOCAINE PF 2% 5 ML (XYLOCAINE) VIAL ONE (10:40)
--- NOTE | 2019-05-01 13:00 | NUR ---
ALEXIA MAIN AT BEDSIDE FOR EPIDURAL ASSESSMENT. PT STILL CO PAIN 8/10 AFTER EP[address]URAL REPLACEMENT BY DR MARINO
[2019-05-01] MEDS: EPIDURAL (SUFENTA 0.6MCG/ML BUPIVA 0.125%) 100 ML BAG EPI SCH ×2 (13:30→17:54)
--- NOTE | 2019-05-01 15:35 | NUR ---
this rn gives dr jones an update on pt status. had to replace epidural again and pt now has a working epidural. sve at approx 1400 was 3.5 cm. still on 20 of pitocin. uc 2-5 min with what appears to be an OP pattern. this rn has been turning pt side to side modified swan. t reviewed with no new orders.
[2019-05-01] MEDS ORDERED: ONDANSETRON 4 MG/2 ML (SDV) Z0FRAN IVP ONE (15:45)
[2019-05-01] MEDS ORDERED: ONDANSETRON 4 MG/2 ML (SDV) Z0FRAN ONE (15:47)
[2019-05-01] MEDS ORDERED: LACTATED RINGERS 1,000 ML IV ONE (16:10)
[2019-05-01] MEDS ORDERED: CATHETER FLUSH 10 ML SYR IV PRN (16:15)
[2019-05-01] MEDS ORDERED: NALOXONE 0.4 MG/ML 1 ML (NARCAN) VIAL IV PRN (16:15)
[2019-05-01] MEDS ORDERED: diphenhydrAMINE 50 MG/ML INJ (BENADRYL) IV PRN (16:15)
[2019-05-01] MEDS ORDERED: ONDANSETRON 4 MG/2 ML (SDV) Z0FRAN IV PRN (16:15)
--- NOTE | 2019-05-01 16:41 | NUR ---
rn updates dr jones on pt report. no new orders
--- NOTE | 2019-05-01 18:51 | NUR ---
dr lantigua called for update on pt report (dr lantigua is ob multifocal button generator today). this rn gives updated pt report, last sve, pitocin rate at 20, not increasing above 20/hr per dr jones orders, uc pattern, epidural, srom.
--- NOTE | 2019-05-01 19:10 | NUR ---
report given to sarah conte rn
[2019-05-02] VITALS (20 sets, daily range): BP systolic 84–133; BP diastolic 46–68
[2019-05-02] MEDS ORDERED: ACETAMINOPHEN 500 MG TAB (TYLENOL) ONE (01:07)
[2019-05-02] MEDS ORDERED: ACETAMINOPHEN 500 MG TAB (TYLENOL) PO ONE (01:15)
[2019-05-02] MEDS ORDERED: IBUPROFEN 600 MG (MOTRIN) TAB PO ONE (03:04)
[2019-05-02] MEDS: IBUPROFEN 600 MG (MOTRIN) TAB PO SCH ×4 (03:10→22:11)
--- NOTE | 2019-05-02 03:30 | NUR ---
cold tray provided.
[2019-05-02] MEDS ORDERED: BENZOCAINE/MENTHOL (DERMOPLAST) 56 ML CAN TP ONE (04:48)
[2019-05-02] MEDS ORDERED: OXYTOCIN/NORMAL SALINE 500 ML IV SCH (05:02)
--- NOTE | 2019-05-02 05:05 | NUR ---
kita care completed. ff 1 below umbilicus, light rubra noted. pad and panties applied. pt transfer to ' and taken to room 313. pt ambulated to bathroom. positive void. pericare completed. ice pack applied pt ambulated to bed. orientated to room. info papers discussed. pt denies any needs at this time. will continue to monitor.
[2019-05-02] MEDS ORDERED: MEASLES,MUMPS,RUBELLA 1 EA INJ SQ ONE (05:15)
[2019-05-02] MEDS ORDERED: BENZOCAINE/MENTHOL (DERMOPLAST) 56 ML CAN TP PRN (05:15)
[2019-05-02] MEDS ORDERED: WITCH HAZEL(TUCKS) 40 EA JAR TOP PRN (05:15)
[2019-05-02] MEDS ORDERED: TETANUS,DIPTH,PERTUSS P/F (BOOSTRIX) 0.5 ML VIAL IM ONE (05:15)
--- NOTE | 2019-05-02 07:00 | NUR ---
REPORT FROM MARY DURBIN.
[2019-05-02] MEDS: ACETAMINOPHEN 500 MG TAB (TYLENOL) PO SCH ×2 (09:45→17:47)
--- NOTE | 2019-05-02 09:49 | Anesthesia-Regional Post-Op ---
Regional Patient Condition Mental Status: Alert, Oriented x3 Circulation: Same as Pre-Op Headache: Absent Sensation: Full Recovery Motor Block: Absent Post Op Complications Complications None Follow Up Care/Instructions Patient Instructions None needed. Anesthesia/Patient Condition Patient is doing well, no complaints, stable vital signs, no apparent adverse anesthesia problems. No complications reported per nursing. KARLA LINCOLN CRNA May 02, 2019 09:48
--- NOTE | 2019-05-02 09:49 | OB Labor & Delivery Record ---
Vag Delivery Note Vag Delivery Note Date of Delivery: 05/02/19 at 0236- late entry due to system downtime Preoperative Diagnosis: Traci Julien is a 23 /Para 1 / 0,Gestational Age (wks)39with 5 days Postoperative Diagnosis: Same Surgeon: ALLEN PEREZ Anesthesia: Epidural Delivery Type: Spontaneous vaginal Findings: Viable male , apgars 8/9, weight 7#7 Lacerations: bilateral vaginal wall abrasions Intact placenta with 3 vessel cord. No nuchal cord, body cord or shoulder dysto esperanza Estimated Blood Loss: 200 ml Complications: None Condition: Stable Description of Procedure: The patient is a 23 year old female who presented with SROM. She was admitted and informed consent was obtained. Her labor course was remarkable for augmentation with pitocin and prolonged early phase. She progressed to complete dilatation and began to push. She was then set up for delivery. The 's head was delivered atraumatically in the LOI position. The shoulders and remainder of the infant's body were then delivered without difficulty. Upon delivery, was placed on maternal abdom en. The cord was doubly clamped and cut and the was handed off to the pediatric staff. An intact placenta with 3-vessel cord delivered via Narendra and there was found to be minimal bleeding.~ Vigorous fundal massage was performed and the fundus was found to be firm. IV oxytocin was given. Examination of the vagina and perineum revealed no lacerations, abrasions only not requiring repair. Following the delivery, sponge, instrument and needle counts were correct. Mom and baby were both in stable condition in the labor suite. ALLEN PEREZ MD May 02, 2019 09:49
--- NOTE | 2019-05-02 10:00 | NUR ---
INITIAL ASSESSMENT COMPLETED, VSS, NO DISTRESS NOTED, SEE INTERVENTIONS FOR DETAILED ASSESSMENTS, PLAN OF CARE EXPLAINED TO PT, PT VERBALIZES UNDERSTANDING WILL MONITOR CLOSELY.
--- NOTE | 2019-05-02 16:53 | NUR ---
[facility] SET UP FOR PT PER REQUEST.
--- NOTE | 2019-05-02 22:10 | NUR ---
Pt sitting up in bed with resting in her arms. Mother receptive to education and is not ready to sleep but is aware of no co-sleeping education.
[2019-05-03] MEDS: ACETAMINOPHEN 500 MG TAB (TYLENOL) PO SCH ×2 (01:55→12:08)
[2019-05-03 02:00] VITALS: BP 106/56
[2019-05-03] MEDS: IBUPROFEN 600 MG (MOTRIN) TAB PO SCH ×3 (04:10→17:06)
[2019-05-03 06:14] LABS: BASOPHILS % (AUTO) 0 % (0-10); EOSINOPHILS # (AUTO) 0.2 10^3/uL (0.0-0.3); EOSINOPHILS % (AUTO) 2 % (0-10); HEMATOCRIT 30 % (35-52); HEMOGLOBIN 9.4 G/DL (11.5-16.0); LYMPHOCYTES # (AUTO) 2.1 X 10^3 (1.0-4.0); LYMPHOCYTES % (AUTO) 21 % (12-44); MEAN CORPUSCULAR HEMOGLOBIN 27 PG (25-34); MEAN CORPUSCULAR HGB CONC 32 G/DL (32-36); MEAN CORPUSCULAR VOLUME 86 FL (80-99); MEAN PLATELET VOLUME 9.1 FL (7.4-10.4); MONOCYTES # (AUTO) 0.5 X 10^3 (0.0-1.0); MONOCYTES % (AUTO) 5 % (0-12); NEUTROPHILS # (AUTO) 7.2 X 10^3 (1.8-7.8); NEUTROPHILS % (AUTO) 72 % (42-75); PLATELET COUNT 273 10^3/uL (130-400); RED CELL DISTRIBUTION WIDTH 13.4 % (10.0-14.5); WHITE BLOOD COUNT 9.9 10^3/uL (4.3-11.0)
[2019-05-03] MEDS ORDERED: IBUP-844 PO (08:19)
--- NOTE | 2019-05-03 08:20 | Discharge Instructions ---
Discharge Inst-Women's Serv Reconcile Patient Problems Problems Reviewed?: Yes Depart Medications New, Converted or Re-Newed RX: Transmitted to Pharmacy Follow Up/Instructions Goal/Follow Up: Dr. Mendoza in 6 weeks. Activity Activity: Activity as Tolerated Driving Instructions: You May Drive NO SMOKING: NO SMOKING Nothing Inside Vagina: No Douching, No Roxie, No Tampons Diet Discharge Diet: No Restrictions Symptoms to Report to : Fever Over 101 Degrees F, Vaginal Bleeding Increase, Vaginal Discharge Foul For Any Problems or Questions: Contact Your Physician JOSIE MINER MD May 03, 2019 08:20
--- NOTE | 2019-05-03 08:24 | Discharge Summary ---
Diagnosis/Chief Complaint Date of Admission May 01, 2019 at 05:13 Date of Discharge May 03, 2019 Admission Diagnosis Admission Diagnosis Term labor at 39 weeks Discharge Diagnosis Term vaginal delivery at 39 weeks. Discharge Summary-OBS Procedures None. Discharge Physical Examination Allergies: Coded Allergies: No Known Drug Allergies (Unverified , 05/01/19) Vitals & I&Os Vital Sign - Last 12Hours Date Time Temp Pulse Resp B/P (MAP) Pulse Ox O2 Delivery O2 Flow Rate FiO2 05/03/19 02:00 36.1 69 18 106/56 (73) 97 Room Air General Appearance: Alert, Oriented X3 HEENT: Atraumatic Respiratory: Clear to Auscultation Cardiovascular: Regular Rate Abdominal: Normal Bowel Sounds, Other (fundus firm and below umbilicus) Extremities: No Tenderness/Swelling Skin: No Rashes Neuro: Normal Gait Psych/Mental Status: Mental Status NL Hospital Course Was the Problem List Reviewed?: Yes Labs Laboratory Tests 05/03/19 06:03: White Blood Count 9.9, Red Blood Count 3.43L, Hemoglobin 9.4L, Hematocrit 30L, Mean Corpuscular Volume 86, Mean Corpuscular Hemoglobin 27, Mean Corpuscular Hemoglobin Concent 32, Red Cell Distribution Width 13.4, Platelet Count 273, Mean Platelet Volume 9.1, Neutrophils (%) (Auto) 72, Lymphocytes (%) (Auto) 21, Monocytes (%) (Auto) 5, Eosinophils (%) (Auto) 2, Basophils (%) (Auto) 0, Neutrophils # (Auto) 7.2, Lymphocytes # (Auto) 2.1, Monocytes # (Auto) 0.5, Eosinophils # (Auto) 0.2, Basophils # (Auto) 0.0 Discharge Instructions to patient/family Please see electronic discharge instructions given to patient. Discharge Medications Reviewed and agree with Discharge Medication list on patient's Discharge Instruction sheet Clinical Quality Measures DVT/VTE Risk/Contraindication: Risk Factor Score Per Nursin RFS Level Per Nursing on Admit: 1=Low/No VTE PPX JOSIE MINER MD May 03, 2019 08:24
[2019-05-03 09:28] VITALS: BP 108/55
[2019-05-03 12:43] VITALS: BP 115/54
--- NOTE | 2019-05-03 18:00 | NUR ---
DENNIS YEE demonstrates understanding of discharge instructions and accurately returns instructions upon questioning. Copy of Post-Discharge Instructions and Medication Discharge Instructions given to pt. DENNIS YEE is able to manage continuing needs after discharge. Patients belongings returned to pt. Skin dry and intact; no breakdown noted. Patient discharged from [facility]- on 05/03/19 at 1805 . DENNIS YEE left floor ambulatory, accompanied by women services staff.
== END 2019-05-03 18:05 | disposition home or self-care (01) | DRG 807 ==
LOC: WSo 03:59 → LDRP 04:00 → WSo 05:13 → LDRP 05-02 05:35
PROVIDERS: ADMIT Family Medicine; ATTEND Family Medicine
PROC: 10E0XZZ Delivery of Products of Conception, External Approach (ICD-10-PCS; principal; 2019-05-02)
DX: O98.32 Other infections with a predominantly sexual mode of transmission complicating childbirth (principal); Z37.0 Single live birth; Z3A.39 39 weeks gestation of pregnancy
CPT/HCPCS: 36415; 85025; 86850; 86900; 86901; 99212

== ENCOUNTER 2019-07-30 22:45 | Emergency (ER) | payer BC, MEDICAID, OTHER ==
[~2019-07-30] VITALS: Ht 172 cm; Wt 108.0 kg
[~2019-07-30 22:45] MED LIST changes: +GUAI600T43 PO; +IBUP-844 PO
--- NOTE | 2019-07-30 23:08 | ED Abdominal Pain ---
General Chief Complaint: Abdominal/GI Problems Stated Complaint: RT SIDE PAIN Nursing Triage Note: ABDOMINAL PAIN Sepsis Screen: No Definite Risk Source of Information: Patient (SOMEWHAT LIMITED HISTORIAN) History of Present Illness Date Seen by Provider: Jul 30, 2019 Time Seen by Provider: 23:10 Initial Comments PT ARRIVES VIA POV FROM HOME C/O RUQ PAIN --BEGAN SOMETIME EARLIER TODAY, BUT HAS NO IDEA WHETHER IT WAS THIS MORNING, OR THIS EVENING STATES SHE WAS HAVING "SHARP PAINS" BUT NO PAIN NOW PAIN COMES AND GOES NOTHING WORSENS OR IMPROVES PAIN NO NAUSEA/VOMITING. HAD NORMAL BM YESTERDAY NO FEVER NO URINARY SYMPTOMS NO RADIATION OF PAIN HAS CONTINUED TO EAT AND DRINK NORMALLY NO KNOWN SICK CONTACTS OR SUSPICIOUS FOODS NO HISTORY OF SIMILAR HAS NOT TAKEN ANYTHING FOR PAIN LMP --SOMETIME IN JUNE, HAD NEXPLANON PLACED 06/14/19 PCP: MOLLY Allergies and Home Medications Allergies Coded Allergies: No Known Drug Allergies (Unverified , 05/01/19) Home Medications Cetirizine HCl 10 Mg Capsule, 10 MG PO DAILY, (Reported) Dicyclomine HCl 20 Mg Tablet, 20 MG PO Q6H Prescribed by: CATRACHO COSTELLO on 07/31/1954 Hyoscyamine Sulfate 0.125 Mg Tab.subl, 0.25 MG SL Q4H Prescribed by: CATRACHO COSTELLO on 07[birth year]31/1954 Ibuprofen 600 Mg Tablet, 600 MG PO Q6HR Prescribed by: JOSIE MINER on 05/03/19 0819 Pantoprazole Sodium 40 Mg Tablet.dr, 40 MG PO DAILY Prescribed by: CATRACHO COSTELLO on 07/31/1952 Vit No.124/Iron/FA 1 Each Tablet, 1 EACH PO DAILY, (Reported) Patient Home Medication List Home Medication List Reviewed: Yes Review of Systems Review of Systems Constitutional: no symptoms reported; No chills, No diaphoresis, No dizziness, No fever Respiratory: No Symptoms Reported Cardiovascular: No Symptoms Reported Gastrointestinal: See HPI, Abdominal Pain; Denies Constipated, Denies Diarrhea, Denies Nausea, Denies Poor Appetite, Denies Poor Fluid Intake, Denies Vomiting Genitourinary: No Symptoms Reported Musculoskeletal: no symptoms reported Skin: no symptoms reported Psychiatric/Neurological: No Symptoms Reported Past Bihdyic-Dfdgup-Qzjtma Hx Past Med/Social Hx: Reviewed and Corrections made Patient Social History Alcohol Use: Occasionally Uses Alcohol Beverage of Choice: [place] Recreational Drug Use: No Smoking Status: Former Smoker Type Used: Cigarettes Former Smoker, Quit: Feb 13, 2015 2nd Hand Smoke Exposure: Yes Recent Foreign Travel: No Contact w/Someone Who Travel: No Recent Infectious Disease Expo: No Recent Hopitalizations: No Physical Abuse: No Sexual Abuse: No Mistreated: No Fear: No Immunizations Up To Date Tetanus Booster (TDap): Less than 5yrs Date of Influenza Vaccine: Feb 12, 2019 Seasonal Allergies Seasonal Allergies: No Past Medical History Surgeries: No Respiratory: No Cardiac: No Neurological: Yes Headaches /Migraines Female Reproductive Disorders: Denies Sexually Transmitted Disease: Yes (HSV, Chlamydia) HIV/AIDS: No Genitourinary: No Gastrointestinal: No Musculoskeletal: No Endocrine: No HEENT: No Cancer: No Psychosocial: Yes Anxiety, Depression Integumentary: No Blood Disorders: No Adverse Reaction/Blood Tranf: No Family Medical History Diabetes mellitus 19 FATHER [place] Sarcoma G8 SISTER No Pertinent Family Hx Physical Exam Vital Signs Vital Signs - First Documented 07/30/19 22:58 Temp 36.3 Pulse 111 Resp 18 B/P (MAP) 128/75 (92) Pulse Ox 97 O2 Delivery Room Air Capillary Refill : Less Than 3 Seconds Height/Weight/BMI Height: 5'8.00" Weight: 270lbs. oz. 122.105469qr; 36.00 BMI Method:Stated General Appearance: WD/WN, no apparent distress, other (SMILING, PLAYING ON PHONE, IS MALE S.O. PT WALKS UPRIGHT ANDN ) HEENT: No scleral icterus (R), No scleral icterus (L) Neck: normal inspection Respiratory: normal breath sounds, no respiratory distress, no accessory muscle use Cardiovascular: regular rate, rhythm, no murmur Gastrointestinal: normal bowel sounds, soft, no organomegaly, no pulsatile mass, tenderness (MILD RUQ TENDERNESS) Extremities: normal inspection Back: normal inspection, no CVA tenderness Neurologic/Psychiatric: editor department II-XII nml as tested, no motor/sensory deficits, alert, normal mood/affect, oriented x 3 Skin: normal color, warm/dry; No damp Progress/Results/Core Measures Results/Orders Lab Results Laboratory Tests Test 07/30/19 23:50 07/31/19 00:19 Range/Units White Blood Count 9.1 4.3-11.0 10^3/uL Red Blood Count 4.48 4.35-5.85 10^6/uL Hemoglobin 11.7 11.5-16.0 G/DL Hematocrit 37 35-52 % Mean Corpuscular Volume 82 80-99 FL Mean Corpuscular Hemoglobin 26 25-34 PG Mean Corpuscular Hemoglobin Concent 32 32-36 G/DL Red Cell Distribution Width 13.2 10.0-14.5 % Platelet Count 346 130-400 10^3/uL Mean Platelet Volume 9.1 7.4-10.4 FL Neutrophils (%) (Auto) 64 42-75 % Lymphocytes (%) (Auto) 29 12-44 % Monocytes (%) (Auto) 6 0-12 % Eosinophils (%) (Auto) 1 0-10 % Basophils (%) (Auto) 0 0-10 % Neutrophils # (Auto) 5.8 1.8-7.8 X 10^3 Lymphocytes # (Auto) 2.7 1.0-4.0 X 10^3 Monocytes # (Auto) 0.5 0.0-1.0 X 10^3 Eosinophils # (Auto) 0.1 0.0-0.3 10^3/uL Basophils # (Auto) 0.0 0.0-0.1 10^3/uL Sodium Level 141 135-145 MMOL/L Potassium Level 4.0 3.6-5.0 MMOL/L Chloride Level 107 98-107 MMOL/L Carbon Dioxide Level 23 21-32 MMOL/L Anion Gap 11 5-14 MMOL/L Blood Urea Nitrogen 16 7-18 MG/DL Creatinine 0.73 0.60-1.30 MG/DL Estimat Glomerular Filtration Rate > 60 BUN/Creatinine Ratio 22 Glucose Level 96 70-105 MG/DL Calcium Level 9.3 8.5-10.1 MG/DL Corrected Calcium 9.1 8.5-10.1 MG/DL Total Bilirubin 0.1 0.1-1.0 MG/DL Aspartate Amino Transf (AST/SGOT) 15 5-34 U/L Alanine Aminotransferase (ALT/SGPT) 22 0-55 U/L Alkaline Phosphatase 118 40-136 U/L Total Protein 7.4 6.4-8.2 GM/DL Albumin 4.2 3.2-4.5 GM/DL Amylase Level 64 25-125 U/L Lipase 33 8-78 U/L Urine Color YELLOW Urine Clarity CLEAR Urine pH 6.0 5-9 Urine Specific [place] >=1.030 1.016-1.022 Urine Protein NEGATIVE NEGATIVE Urine Glucose (UA) NEGATIVE NEGATIVE Urine Ketones NEGATIVE NEGATIVE Urine Nitrite NEGATIVE NEGATIVE Urine Bilirubin NEGATIVE NEGATIVE Urine Urobilinogen 0.2 < = 1.0 MG/DL Urine Leukocyte Esterase NEGATIVE NEGATIVE Urine RBC (Auto) NEGATIVE NEGATIVE Urine RBC NONE /HPF Urine WBC 0-2 /HPF Urine Crystals PRESENT H /LPF Urine Amorphous Sediment FEW JACKIE URATES H /LPF Urine Bacteria TRACE /HPF Urine Casts NONE /LPF Urine Mucus SMALL H /LPF Urine Culture Indicated NO Urine Opiates Screen NEGATIVE NEGATIVE Urine Oxycodone Screen NEGATIVE NEGATIVE Urine Methadone Screen NEGATIVE NEGATIVE Urine Propoxyphene Screen NEGATIVE NEGATIVE Urine Barbiturates Screen NEGATIVE NEGATIVE Ur Tricyclic Antidepressants Screen NEGATIVE NEGATIVE Urine Phencyclidine Screen NEGATIVE NEGATIVE Urine Amphetamines Screen NEGATIVE NEGATIVE Urine Methamphetamines Screen NEGATIVE NEGATIVE Urine Benzodiazepines Screen NEGATIVE NEGATIVE Urine Cocaine Screen NEGATIVE NEGATIVE Urine Cannabinoids Screen NEGATIVE NEGATIVE My Orders Orders - CATRACHO COSTELLO DO Ed Iv/Invasive Line Start (07/30/19 23:09) Urine Bedside (07/30/19 23:09) Ct Abd/Pelvis Wo(Kidney Stone) (07/30/19 23:09) Abdomen/Kub 1view (07/30/19 23:09) Amylase (07/30/19 23:09) Cbc With Automated Diff (07/30/19 23:09) Comprehensive Metabolic Panel (07/30/19 23:09) Drug Screen Stat (Urine) (07/30/19 23:09) Lipase (07/30/19 23:09) Ua Culture If Indicated (07/30/19 23:09) Ed Iv/Invasive Line Start (07/30/19 23:09) Lactated Ringers (Lr 1000 Ml Iv Solution (07/30/19 23:09) Ed Iv/Invasive Line Start (07/30/19 23:59) Lactated Ringers (Lr 1000 Ml Iv Solution (07/30/19 23:59) Lactated Ringers (Lr 1000 Ml Iv Solution (07/31/19 00:00) Ketorolac Injection (Toradol Injection) (07/31/19 00:30) Hyoscyamine Sl Tablet (Levsin Sl Tablet) (07/31/19 00:30) Medications Given in ED Vital Signs/I&O 07/30/19 07/31/19 22:58 01:15 Temp 36.3 37.0 Pulse 111 76 Resp 18 20 B/P (MAP) 128/75 (92) 100/54 Pulse Ox 97 98 O2 Delivery Room Air Blood Pressure Mean: 92 Progress Progress Note : Progress Note UNEVENTFUL ER STAY Diagnostic Imaging Comments ABDOMEN XRAYS--LARGE AMOUNT OF STOOL IN COLON, OTHERWISE NO ACUTE PROCESS, PENDING RADIOLOGIST REVIEW CT ABDOMEN PELVIS--NO ACUTE PROCESS, MODERATE AMOUNT OF PROXIMAL COLON STOOL. [place] [facility] [place] [id number] Reviewed: Reviewed by Me Departure Impression Primary Impression: RUQ abdominal pain Disposition: HOME, SELF-CARE Condition: Stable Departure-Patient Inst. Referrals: ALLEN PEREZ MD (PCP) Primary Care Physician MARGARET BALLARD APRN (Family) Primary Care Physician Patient Instructions: Acute Abdomen (Belly Pain), Adult (DC) Add. Discharge Instructions: CALL IN AM TO SCHEDULE OUTPATIENT ULTRASOUND NOTHING TO EAT OR DRINK FOR AT LEAST 8 HOURS BEFORE ULTRASOUND CLEAR LIQUIDS--WATER, BROTH, JELLO, GATORADE FOLLOW UP WITH YOUR DR THIS WEEK FOR FURTHER EVALUATION All discharge instructions reviewed with patient and/or family. Voiced understanding. Scripts Pantoprazole Sodium (Protonix) 40 Mg Tablet. 40 MG PO DAILY, #15 TAB Prov: CATRACHO COSTELLO DO 07/31/19 Hyoscyamine Sulfate (Levsin-Sl) 0.125 Mg Tab.subl 0.25 MG SL Q4H, #10 TAB Prov: CATRACHO COSTELLO DO 07/31/19 Dicyclomine HCl (Dicyclomine HCl) 20 Mg Tablet 20 MG PO Q6H for Abdominal Pain, #20 TAB Prov: CATRACHO COSTELLO DO 07/31/19 CATRACHO COSTELLO DO Jul 30, 2019 23:08
[2019-07-30] MEDS ORDERED: LACTATED RINGERS 1,000 ML IV ONE ×2 (23:09→23:59)
[2019-07-31] MEDS ORDERED: LACTATED RINGERS 1,000 ML IV SCH
[2019-07-31 00:01] LABS: BASOPHILS % (AUTO) 0 % (0-10); EOSINOPHILS # (AUTO) 0.1 10^3/uL (0.0-0.3); EOSINOPHILS % (AUTO) 1 % (0-10); HEMATOCRIT 37 % (35-52); HEMOGLOBIN 11.7 G/DL (11.5-16.0); LYMPHOCYTES # (AUTO) 2.7 X 10^3 (1.0-4.0); LYMPHOCYTES % (AUTO) 29 % (12-44); MEAN CORPUSCULAR HEMOGLOBIN 26 PG (25-34); MEAN CORPUSCULAR HGB CONC 32 G/DL (32-36); MEAN CORPUSCULAR VOLUME 82 FL (80-99); MEAN PLATELET VOLUME 9.1 FL (7.4-10.4); MONOCYTES # (AUTO) 0.5 X 10^3 (0.0-1.0); MONOCYTES % (AUTO) 6 % (0-12); NEUTROPHILS # (AUTO) 5.8 X 10^3 (1.8-7.8); NEUTROPHILS % (AUTO) 64 % (42-75); PLATELET COUNT 346 10^3/uL (130-400); RED CELL DISTRIBUTION WIDTH 13.2 % (10.0-14.5); WHITE BLOOD COUNT 9.1 10^3/uL (4.3-11.0)
[2019-07-31 00:27] LABS: ALANINE AMINOTRANSFERASE 22 U/L (0-55); ALBUMIN 4.2 GM/DL (3.2-4.5); ALKALINE PHOSPHATASE 118 U/L (40-136); AMYLASE 64 U/L (25-125); BILIRUBIN,TOTAL 0.1 MG/DL (0.1-1.0); BUN/CREATININE RATIO 22; CALCIUM 9.3 MG/DL (8.5-10.1); CARBON DIOXIDE 23 MMOL/L (21-32); CHLORIDE 107 MMOL/L (98-107); CREATININE SERUM 0.73 MG/DL (0.60-1.30); GFR ESTIMATED > 60; GLUCOSE 96 MG/DL (70-105); LIPASE 33 U/L (8-78); SODIUM 141 MMOL/L (135-145); TOTAL PROTEIN 7.4 GM/DL (6.4-8.2)
[2019-07-31 00:28] LABS: BILIRUBIN,URINE NEGATIVE (NEGATIVE); CLARITY,URINE CLEAR; COLOR,URINE YELLOW; GLUCOSE, URINE (UA) NEGATIVE (NEGATIVE); KETONES,URINE NEGATIVE (NEGATIVE); LEUKOCYTE ESTERASE ,URINE NEGATIVE (NEGATIVE); NITRITE,URINE NEGATIVE (NEGATIVE); PROTEIN,URINE NEGATIVE (NEGATIVE)
[2019-07-31] MEDS ORDERED: KETOROLAC 30 MG/ML VIAL IVP ONE (00:30)
[2019-07-31] MEDS ORDERED: HYOSCYAMINE 0.125 MG (LEVSIN) TAB PO ONE (00:30)
[2019-07-31 00:46] LABS: AMORPHOUS SEDIMENT,UR FEW AMOR URATES /LPF; BACTERIA,URINE TRACE /HPF; WBC,URINE 0-2 /HPF
[2019-07-31] MEDS ORDERED: DICY20TA10 PO (00:53)
[2019-07-31] MEDS ORDERED: PANT40TA2 PO (00:53)
[2019-07-31] MEDS ORDERED: HYOS0.1283 SL (00:53)
[2019-07-31 01:04] LABS: AMPHETAMINE SCREEN, URINE NEGATIVE (NEGATIVE); BARBITURATE SCREEN URINE NEGATIVE (NEGATIVE); BENZODIAZEPINES SCREEN URINE NEGATIVE (NEGATIVE); CANNABINOID SCREEN, URINE NEGATIVE (NEGATIVE); COCAINE SCREEN URINE NEGATIVE (NEGATIVE); METHADONE STAT NEGATIVE (NEGATIVE); METHAMPHETAMINE SCREEN URINE S NEGATIVE (NEGATIVE); OPIATE SCREEN URINE NEGATIVE (NEGATIVE); OXYCODONE STAT NEGATIVE (NEGATIVE); PROPOXYPHENE STAT NEGATIVE (NEGATIVE); TRICYCLIC ANTIDEPRESSANTS SCRE NEGATIVE (NEGATIVE)
[2019-07-31 01:15] VITALS: BP 100/54
--- NOTE | 2019-07-31 06:19 | Diagnostic Imaging Report ---
Indication: Right upper quadrant abdominal pain KUB 11:52 PM There is a moderate amount of stool in the colon. Bowel gas pattern is normal. There are no pathologic masses or calcifications. IMPRESSION: Fecal stasis Dictated by: Dictated on workstation # [id number]
--- NOTE | 2019-07-31 07:28 | Diagnostic Imaging Report ---
PROCEDURE: CT urinary tract, rule out kidney stone. TECHNIQUE: Multiple contiguous axial images were obtained through the abdomen and pelvis without the use of intravenous contrast. Auto Exposure Controls were utilized during the CT exam to meet ALARA standards for radiation dose reduction. INDICATION: Right-sided upper abdominal pain. COMPARISON: 01/17/2018 FINDINGS: The lung bases are clear. The heart is normal in size. There is no pericardial effusion. The liver demonstrates no focal lesions. The spleen appears normal with small splenules noted. The pancreas is normal. The adrenal glands are normal. The kidneys are unremarkable. No hydronephrosis is seen. No obstructing renal calculi are seen. The bowel loops are nondistended without obstruction. The appendix appears normal. No free fluid or free air is seen. No acute osseous abnormality is seen. IMPRESSION: 1. No renal calculi or hydronephrosis. No acute abdominal abnormality is seen. Dictated by: Dictated on workstation # [id number]
== END 2019-07-31 01:15 | disposition home or self-care (01) ==
LOC: EDUNIT# 22:45 → ER 22:47
DX: R10.11 Right upper quadrant pain (principal); Z77.22 Contact with and (suspected) exposure to environmental tobacco smoke (acute) (chronic); Z87.891 Personal history of nicotine dependence
CPT/HCPCS: 36415; 74018; 74176; 80053; 80306; 81000; 82150; 83690; 84703; 85025

== ENCOUNTER → 2019-07-31 | Outpatient (CLI) | payer OTHER ==
[~2019-07-31] MED LIST changes: +DICY20TA10 PO; +HYOS0.1283 SL; +PANT40TA2 PO
--- NOTE | 2019-07-31 15:06 | Diagnostic Imaging Report ---
INDICATION: Right upper quadrant pain. PROCEDURE: Ultrasound abdomen complete. TECHNIQUE: Multiple real-time grayscale images were obtained of the abdomen in various projections. FINDINGS: The liver is normal in size at 17 cm. No discrete liver mass is detected. The portal vein is patent and shows normal direction of flow. The gallbladder is without stones or sludge. No wall thickening or biliary duct dilatation is seen. Visualized pancreas is unremarkable. Spleen is normal in size at 11 cm. Aorta and IVC are unremarkable. Both right and left kidneys appear unremarkable. No calculi are seen. There is no hydronephrosis. There is no ascites. IMPRESSION: Unremarkable abdominal ultrasound. Dictated by: Dictated on workstation # [id number]
== END ==
LOC: RAD 13:12
PROVIDERS: ATTEND Emergency Medicine
DX: R10.11 Right upper quadrant pain (principal)
CPT/HCPCS: 76700

== ENCOUNTER 2020-01-01 11:10 | Outpatient (RCR) | payer MEDICAID | END 2020-01-01 12:14 | disposition home or self-care (01) | PROVIDERS: ATTEND Family Medicine | DX: R32 Unspecified urinary incontinence (principal) ==

== ENCOUNTER 2020-10-21 14:22 | Emergency (ER) | payer MEDICAID ==
[~2020-10-21] VITALS: Ht 172.7 cm; Wt 127.9 kg
[~2020-10-21 14:22] MED LIST changes: +ACYC-108 PO; -ACYC200C PO
[2020-10-21] MEDS ORDERED: KETOROLAC 60 MG/2 ML VIAL IM ONE (15:15)
[2020-10-21] MEDS ORDERED: ONDANSETRON 4 MG (ZOFRAN) ORAL DISSOLVE TAB PO ONE (15:15)
--- NOTE | 2020-10-21 15:15 | ED General ---
General Chief Complaint: General Problems/Pain Stated Complaint: DEHYRDRATION Nursing Triage Note: PT REPORTS FEELING DEHYDRATED DUE TO FEELING NAUSEATED AND HAVING A HEADACHE. PT REPORTS SYMPTOMS BEGAN TUESDAY. PT STATES, "I THINK I TOOK AN IBUPROFEN LAST NIGHT." PT UNSURE OF LMP. PT REPORTS BEING ON CONTROL BUT STATES, 'THAT MEANS NOTHING.' Nursing Sepsis Screen: No Definite Risk Source of Information: Patient Exam Limitations: No Limitations History of Present Illness Date Seen by Provider: Oct 21, 2020 Time Seen by Provider: 14:58 Initial Comments This is a 25-year-old female who presents to the ER with concerns of dehydration. States that she has been having intermittent headache and nausea for couple days making it difficult to drink and eat. No fevers, chills, cough, shortness of breath, vomiting, diarrhea. Last menstrual period she believes is a few weeks ago. Allergies and Home Medications Allergies Coded Allergies: No Known Drug Allergies (Unverified , 05/01/19) Home Medications Cetirizine HCl 10 Mg Capsule, 10 MG PO DAILY, (Reported) Dicyclomine HCl 20 Mg Tablet, 20 MG PO Q6H Prescribed by: CATRACHO COSTELLO on 07/31/1954 Hyoscyamine Sulfate 0.125 Mg Tab.subl, 0.25 MG SL Q4H Prescribed by: CATRACHO COSTELLO on 07/31/1954 Ibuprofen 600 Mg Tablet, 600 MG PO Q6HR Prescribed by: JOSIE MINER on 05/03/19 0819 Ondansetron 4 Mg Tab.rapdis, 4 MG PO Q6H PRN for NAUSEA-1ST LINE Prescribed by: KELVIN AGUERO on 10/21/20 1531 Pantoprazole Sodium 40 Mg Tablet.dr, 40 MG PO DAILY Prescribed by: CATRACHO COSTELLO on 07/31/19 005 Vit No.124/Iron/FA 1 Each Tablet, 1 EACH PO DAILY, (Reported) Sulfamethoxazole/Trimethoprim 1 Each Tablet, 1 EACH PO BID Prescribed by: KELVIN AGUERO on 10/21/20 1540 Patient Home Medication List Home Medication List Reviewed: Yes Review of Systems Review of Systems Constitutional: see HPI EENTM: no symptoms reported Respiratory: no symptoms reported Cardiovascular: no symptoms reported Gastrointestinal: see HPI Genitourinary: no symptoms reported Musculoskeletal: no symptoms reported Skin: no symptoms reported Psychiatric/Neurological: No Symptoms Reported Hematologic/Lymphatic: No Symptoms Reported Immunological/Allergic: no symptoms reported Past Oecjatg-Touifd-Czsuil Hx Patient Social History Alcohol Use: Occasionally Uses Number of Drinks Today: BB Alcohol Beverage of Choice: [place] Drug of Choice: [place] Smoking Status: Former Smoker Type Used: Cigarettes Former Smoker, Quit: Feb 13, 2015 2nd Hand Smoke Exposure: Yes Recent Infectious Disease Expo: No Recent Hopitalizations: No Immunizations Up To Date Tetanus Booster (TDap): Less than 5yrs Date of Influenza Vaccine: Feb 12, 2019 Seasonal Allergies Seasonal Allergies: No Past Medical History Surgeries: No Respiratory: No Cardiac: No Neurological: Yes Headaches /Migraines Female Reproductive Disorders: Denies Sexually Transmitted Disease: Yes (HSV, Chlamydia) HIV/AIDS: No Genitourinary: No Gastrointestinal: No Musculoskeletal: No Endocrine: Yes (INSULIN RESISTANT) HEENT: No Cancer: No Psychosocial: Yes Anxiety, Depression Integumentary: No Blood Disorders: No Adverse Reaction/Blood Tranf: No Family Medical History Diabetes mellitus 19 FATHER [place] Sarcoma G8 SISTER No Pertinent Family Hx Physical Exam Vital Signs Vital Signs - First Documented 10/21/20 14:25 Pulse 92 Resp 20 B/P (MAP) 123/67 (85) Pulse Ox 95 O2 Delivery Room Air Capillary Refill : Less Than 3 Seconds Height, Weight, BMI Height: 5'8.00" Weight: 270lbs. oz. 122.661224jp; 42.00 BMI Method:Stated General Appearance: No Apparent Distress, WD/WN Eyes: Bilateral Eye Normal Inspection, Bilateral Eye PERRL, Bilateral Eye EOMI HEENT: PERRL/EOMI, Normal ENT Inspection, Pharynx Normal, Moist Mucous Membranes Neck: Full Range of Motion, Normal Inspection Respiratory: Lungs Clear, Normal Breath Sounds Cardiovascular: Regular Rate, Rhythm, No Murmur, Normal Peripheral Pulses Gastrointestinal: Normal Bowel Sounds, Non Tender, Soft Extremity: Normal Capillary Refill, Normal Inspection Neurologic/Psychiatric: Alert, Oriented x3, No Motor/Sensory Deficits, Normal Mood/Affect Skin: Normal Color, Warm/Dry Progress/Results/Core Measures Suspected Sepsis Recent Fever Within 48 Hours: No Infection Criteria Present: None New/Unexplained Altered Menta: No Sepsis Screen: No Definite Risk SIRS Temperature: Pulse: 92 Respiratory Rate: 20 Blood Pressure 123 /67 Mean: 85 Results/Orders Lab Results Laboratory Tests Test 10/21/20 15:10 Range/Units Urine Color DARK YELLOW Urine Clarity CLEAR Urine pH 7.0 5-9 Urine Specific [place] 1.020 1.016-1.022 Urine Protein TRACE H NEGATIVE Urine Glucose (UA) NEGATIVE NEGATIVE Urine Ketones NEGATIVE NEGATIVE Urine Nitrite NEGATIVE NEGATIVE Urine Bilirubin NEGATIVE NEGATIVE Urine Urobilinogen 1.0 < = 1.0 MG/DL Urine Leukocyte Esterase TRACE H NEGATIVE Urine RBC (Auto) NEGATIVE NEGATIVE Urine RBC NONE /HPF Urine WBC 2-5 /HPF Urine Squamous Epithelial Cells 5-10 /HPF Urine Crystals NONE /LPF Urine Bacteria FEW H /HPF Urine Casts NONE /LPF Urine Mucus MODERATE H /LPF Urine Culture Indicated YES Micro Results Microbiology 10/21/20 Urine Culture - Final, Complete See Comments My Orders Orders - KELVIN AGUERO APRN Ua Culture If Indicated (10/21/20 15:11) Ondansetron Oral Dissolve Tab (Zofran (10/21/20 15:15) Urine Bedside (10/21/20 15:11) Ketorolac Injection (Toradol Injection) (10/21/20 15:15) Urine Culture (10/21/20 15:10) Vital Signs/I&O 10/21/20 10/21/20 14:25 15:59 Pulse 92 92 Resp 20 20 B/P (MAP) 123/67 (85) 123/67 (85) Pulse Ox 95 95 O2 Delivery Room Air Room Air Capillary Refill : Less Than 3 Seconds Blood Pressure Mean: 85 Departure Impression Primary Impression: Head ache Additional Impressions: Nausea UTI (urinary tract infection) Disposition: 01 HOME, SELF-CARE Condition: Improved Departure-Patient Inst. Decision time for Depature: 15:30 Referrals: [facility] (PCP) Primary Care Physician SAYRA CARABALLO APRN (Family) Primary Care Physician Patient Instructions: Nausea and Vomiting, Adult (DC), Urinary Tract Infection, Adult (DC) Add. Discharge Instructions: Plan: 1. Take Antibiotics as directed and complete full course. 2. Drink plenty of fluids to stay hydrated. 3. Take Zofran every 6 hours as needed for nausea. 4. May take Tylenol or ibuprofen as needed for pain per package. 5. Return to ER for any new, concerning, or worsening symptoms. All discharge instructions reviewed with patient and/or family. Voiced understanding. Scripts Sulfamethoxazole/Trimethoprim (Bactrim Ds Tablet) 1 Each Tablet 1 EACH PO BID for 7 Days, #14 TAB 0 Refills Prov: KELVIN AGUERO SERVICE MECHANIC 10/21/20 Ondansetron (Ondansetron Odt) 4 Mg Tab.rapdis 4 MG PO Q6H PRN for NAUSEA-1ST LINE, #30 TAB 0 Refills Prov: KELVIN AGUERO SERVICE MECHANIC 10/21/20 KELVIN AGUERO SERVICE MECHANIC Oct 21, 2020 15:15
[2020-10-21 15:21] LABS: BILIRUBIN,URINE NEGATIVE (NEGATIVE); CLARITY,URINE CLEAR; COLOR,URINE DARK YELLOW; GLUCOSE, URINE (UA) NEGATIVE (NEGATIVE); KETONES,URINE NEGATIVE (NEGATIVE); LEUKOCYTE ESTERASE ,URINE TRACE (NEGATIVE); NITRITE,URINE NEGATIVE (NEGATIVE); PROTEIN,URINE TRACE (NEGATIVE)
[2020-10-21 15:28] LABS: BACTERIA,URINE FEW /HPF
[2020-10-21] MEDS ORDERED: ONDA4TAB11 PO (15:31)
[2020-10-21] MEDS ORDERED: SULF1TAB35 PO (15:40)
[2020-10-21 15:59] VITALS: BP 123/67
== END 2020-10-21 16:00 | disposition home or self-care (01) ==
LOC: EDUNIT# 14:22 → ER 14:24
DX: R51.9 Headache, unspecified (principal); R11.0 Nausea; Z87.891 Personal history of nicotine dependence
CPT/HCPCS: 81000; 84703; 87088; 99284